=== PATIENT | male | born 1970 | race Hispanic/Latino ===

== ENCOUNTER 2019-09-18 18:50 | Emergency (ER) | payer SELFPAY ==
[2019-09-18] MEDS ORDERED: ACETAMINOPHEN 500 MG TAB ONE (19:54)
[2019-09-18] MEDS ORDERED: NA CHLORIDE 0.9% 0 ML ONE (21:24)
[2019-09-18] MEDS ORDERED: CEFTRIAXONE/SWI 1gm 2 GM/20 ML SYR ONE (21:24)
[2019-09-18] MEDS ORDERED: NA CHLORIDE 0.9% 1,000 ML ONE (21:24)
[2019-09-18] MEDS ORDERED: AZITHROMYCIN 500 MG INJ IVPB ONE ×2 (21:24→22:03)
[2019-09-18] MEDS ORDERED: NA CHLORIDE 0.9% 250 ML ONE (22:03)
[2019-09-18 22:21] LABS: Absolute Lymphocytes (CBC) 0.8 K/uL (0.7-4.9); Basophils % 0.1 % (0-1.3); Hematocrit 48.5 % (39.6-49.0); Lymphocytes % 8.2 % (15.3-44.8); MPV 10.5 fL (7.6-11.3); RBC Red Blood Cell Count 5.55 M/uL (4.33-5.43)
[2019-09-18] MEDS ORDERED: ALBUTEROL INHALER 60 PUFF/8 GM IH ONE (22:33)
[2019-09-18 22:34] LABS: ALT/SGPT 64 U/L (12-78); AST/SGOT 42 U/L (15-37); Albumin 3.1 g/dL (3.4-5.0); Alkaline Phosphatase 92 U/L (45-117); BUN Blood Urea Nitrogen 15 mg/dL (7-18); Bicarbonate 25 mmol/L (21-32); Bilirubin Total 0.5 mg/dL (0.2-1.0); Glucose Level 136 mg/dL (74-106); NT PRO-BNP 218 pg/mL (<125); Potassium 3.2 mmol/L (3.5-5.1); Protein, Total 6.8 g/dL (6.4-8.2); Sodium Level 140 mmol/L (136-145); Troponin (Emerg Dept Use Only) < 0.02 ng/mL (0.0-0.045)
--- NOTE | 2019-09-18 22:39 | RAD REPORT ---
EXAM DESCRIPTION: RAD - Chest Pa And Lat (2 Views) - 09/18/2019 8:03 pm CLINICAL HISTORY: COUGH, fever, body COMPARISON: None TECHNIQUE: Frontal and lateral views of the chest were obtained. FINDINGS: The lungs are slightly underinflated. No dense consolidation or mass. There are scattered hazy alveolar opacities evident. Trachea is midline. Heart size is normal and central vasculature is within normal limits. No pleural effusion or pneumothorax seen. No acute bony finding noted. No a ortic abnormality. IMPRESSION: Scattered patchy pneumonia changes are present in both lung awad. Correlation is neede d with any COVID-19 testing that may have been performed.
--- NOTE | 2019-09-18 22:56 | EDPHYS ---
Physician Documentation [facility] Name: Brandon Zhang Age: 49 yrs Sex: Male : 1970 Arrival Date: 09/18/2019 Time: 19:02 Bed 23 Private MD: ED Physician Torin Delgado HPI: 09/17 21:04 This 49 yrs old Male presents to ER via Ambulatory with complaints of Cold adebayo Symptoms, Fever. 21:04 The patient reports fever, that was measured at 102.2 degrees Fahrenheit. Onset: The adebayo symptoms/episode began/occurred 5 day(s) ago. Modifying factors: there are no obvious modifying factors. Associated signs and symptoms: Pertinent positives: chills, cough, runny nose, sinus congestion, shortness of breath. Severity of symptoms: At their worst the symptoms were mild in the emergency department the symptoms have improved mildly. The patient has not experienced similar symptoms in the past. Historical: - Allergies: 19:16 No Known Allergies; ss - PMHx: 19:16 Hypertension; ss - PSHx: 19:16 None; ss - Immunization history:: Flu vaccine is not up to date. - Social history:: Smoking status: Patient denies any tobacco usage or history of. Patient uses alcohol, only on a social basis. Patient/guardian denies using street drugs. - Family history:: not pertinent. ROS: 21:04 Eyes: Negative for injury, pain, redness, and discharge, ENT: Negative for injury, adebayo pain, and discharge, Neck: Negative for injury, pain, and swelling, Cardiovascular: Negative for chest pain, palpitations, and edema, Abdomen/GI: Negative for abdominal pain, nausea, vomiting, diarrhea, and constipation, Back: Negative for injury and pain, : Negative for injury, bleeding, discharge, and swelling, MS/Extremity: Negative for injury and deformity, Skin: Negative for injury, rash, and discoloration, Neuro: Negative for headache, weakness, numbness, tingling, and seizure, Psych: Negative for depression, anxiety, suicide ideation, homicidal ideation, and hallucinations, Allergy/Immunology: Negative for hives, rash, and allergies, Endocrine: Negative for neck swelling, polydipsia, polyuria, polyphagia, and marked weight changes, Hematologic/Lymphatic: Negative for swollen nodes, abnormal bleeding, and unusual bruising. 21:04 Constitutional: Positive for body aches, chills, fatigue, fever, malaise. 21:04 Respiratory: Positive for cough, with no reported sputum. 21:04 MS/extremity: Negative for decreased range of motion, pain, swelling, tenderness. Exam: 21:04 Head/Face: Normocephalic, atraumatic. Eyes: Pupils equal round and reactive to light, adebayo extra-ocular motions intact. Lids and lashes normal. Conjunctiva and sclera are non-icteric and not injected. Cornea within normal limits. Periorbital areas with no swelling, redness, or edema. ENT: Nares patent. No nasal discharge, no septal abnormalities noted. Tympanic membranes are normal and external auditory canals are clear. Oropharynx with no redness, swelling, or masses, exudates, or evidence of obstruction, uvula midline. Mucous membranes moist. Neck: Trachea midline, no thyromegaly or masses palpated, and no cervical lymphadenopathy. Supple, full range of motion without nuchal rigidity, or vertebral point tenderness. No Meningismus. Chest/axilla: Normal chest wall appearance and motion. Nontender with no deformity. No lesions are appreciated. Cardiovascular: Regular rate and rhythm with a normal S1 and S2. No gallops, murmurs, or rubs. Normal PMI, no JVD. No pulse deficits. Respiratory: Lungs have equal breath sounds bilaterally, clear to auscultation and percussion. No rales, rhonchi or wheezes noted. No increased work of breathing, no retractions or nasal flaring. Abdomen/GI: Soft, non-tender, with normal bowel sounds. No distension or tympany. No guarding or rebound. No evidence of tenderness throughout. Back: No spinal tenderness. No costovertebral tenderness. Full range of motion. Skin: Warm, dry with normal turgor. Normal color with no rashes, no lesions, and no evidence of cellulitis. MS/ Extremity: Pulses equal, no cyanosis. Neurovascular intact. Full, normal range of motion. Neuro: Awake and alert, GCS 15, oriented to person, place, time, and situation. Cranial nerves II-XII grossly intact. Motor strength 5/5 in all extremities. Sensory grossly intact. Cerebellar exam normal. Normal gait. Psych: Awake, alert, with orientation to person, place and time. Behavior, mood, and affect are within normal limits. 21:04 Constitutional: The patient appears febrile. 21:04 Cardiovascular: Rate: tachycardic, Rhythm: regular, Pulses: Pulses are 4+ in left popliteal artery, bilateral radial, brachial, femoral, popliteal, posterior tibial and and dorsalis pedis arteries.. Heart sounds: normal, Edema: is not appreciated. 21:04 Respiratory: the patient does not display signs of respiratory distress, Respirations: normal, Breath sounds: are clear throughout, Respiratory rate: 18 22:53 ECG was reviewed by the Attending Physician. [facility] Vital Signs: 19:13 BP 146 / 101; Pulse 100; Resp 18; Temp 102.2; Pulse Ox 96% ; ss 21:30 BP 133 / 101; Pulse 72; Resp 16; Pulse Ox 97% on R/A; jb4 21:40 Temp 99.6(O); jb4 22:15 BP 137 / 96; Pulse 78; Resp 16; Temp 99.6(O); Pulse Ox 96% on R/A; jb4 23:15 BP 121 / 93; Pulse 62; Resp 16; Pulse Ox 96% on R/A; jb4 MDM: 19:19 Patient medically screened. [facility] 21:08 Data reviewed: vital signs, nurses notes, lab test result(s), radiologic studies. [facility] 22:52 Differential diagnosis: viral Infection, bacterial infection, URI, bronchitis, adebayo pneumonia UTI. Data interpreted: classroom monitor: rate is 100 beats/min, Pulse oximetry: on room air is 96 %. Test interpretation: by ED physician or midlevel provider: ECG, plain radiologic studies. Counseling: I had a detailed discussion with the patient and/or guardian regarding: the historical points, exam findings, and any diagnostic results supporting the discharge/admit diagnosis, lab results, radiology results, the need for outpatient follow up. 22:55 ED course: improved, covid suspected. [facility] 09/17 19:33 Order name: Strep; Complete Time: 21:34 [facility] 09/17 19:33 Order name: COVID-19 [facility] 09/17 19:33 Order name: Influenza Screen (a \T\ B); Complete Time: 21:34 [facility] 09/17 20:32 Order name: Throat Culture [facility] 09/17 20:56 Order name: CBC with Diff [facility] 09/17 20:56 Order name: Comprehensive Metabolic Panel; Complete Time: 22:54 [facility] 09/17 19:33 Order name: Chest Pa And Lat (2 Views) XRAY; Complete Time: 22:54 [facility] 09/17 20:56 Order name: Blood Culture Adult (2) [facility] 09/17 20:56 Order name: Troponin (emerg Dept Use Only); Complete Time: 22:54 [facility] 09/17 20:57 Order name: BNP; Complete Time: 22:54 [facility] 09/17 22:28 Order name: Manual Differential ED[facility] 09/17 21:08 Order name: EKG; Complete Time: 21:09 [facility] 09/17 21:08 Order name: EKG - Nurse/Tech; Complete Time: 22:47 [facility] 09/17 21:51 Order name: PO challenge; Complete Time: 22:19 [facility] 09/17 22:54 Order name: PO challenge: juice; Complete Time: 23:06 [facility] EC:53 Rate is 72 beats/min. Rhythm is regular. QRS [facility] is Normal. ME interval is normal. QRS adebayo interval is normal. QT interval is normal. No Q waves. T waves are Normal. No ST changes noted. Clinical impression: Normal ECG and No evidence of ischemia. Interpreted by me. Reviewed by me. Administered Medications: 19:50 Drug: Tylenol 1000 mg Route: PO; jb4 21:40 Follow up: Temp 99.6 Oral; Response: No adverse reaction; Temperature is decreased jb4 21:40 Drug: NS 0.9% 1000 ml Route: IV; Rate: 1 bolus; Site: right antecubital; jb4 22:40 Follow up: Response: No adverse reaction; IV Status: Completed infusion jb4 21:55 Drug: Rocephin 2 grams Route: IV; Rate: per protocol; Site: right antecubital; jb4 21:59 Follow up: Response: No adverse reaction; IV Status: Completed infusion jb4 21:59 Drug: Zithromax 500 mg Route: IVPB; Infused Over: 1 hrs; Site: right antecubital; jb4 22:59 Follow up: Response: No adverse reaction; IV Status: Completed infusion jb4 22:35 Drug: Albuterol HFA Inhaler 2 puffs Route: Inhalation; jb4 Disposition: 09/18/19 22:55 Discharged to Home. Impression: Dyspnea, Pneumonia due to other specified bacteria - BILATERAL PNEUMONIA, PATCHY. - Condition is Stable. - Discharge Instructions: Fever, Adult, Community-Acquired Pneumonia, Adult, Shortness of Breath, Viral Respiratory Infection, Shortness of Breath, Ofzf-[id number], Community-Acquired Pneumonia, Adult, Zgxq-jm-Ufhn, Viral Respiratory Infection, Gimr-Gf-Rmmq, Fever, Adult, Jwat-dn-Yiir, COVID-19. - Prescriptions for Albuterol Sulfate 90 mcg/actuation - inhale 1-2 puff by INHALATION route every 4-6 hours; 1 Inhaler. Zithromax 500 mg Oral Tablet - take 1 tablet by ORAL route once daily for 5 days; 5 tablet. - Medication Reconciliation Form, Thank You Letter, Antibiotic Education, Prescription Opioid Use form. - Follow up: Private Physician; When: 2 - 3 days; Reason: Recheck today's complaints, Continuance of care, Re-evaluation by your physician. Follow up: Jose Villatoro MD; When: 2 - 3 days; Reason: Recheck today's complaints, Re-evaluation by your physician. - Problem is new. - Symptoms have improved. Signatures: Dispatcher [employer] EDMS Torin Delgado MD MD cha Smirch, Shelby, RN RN Coy Arana RN RN jb4 Corrections: (The following items were deleted from the chart) 22:56 22:55 09/18/2019 22:55 Discharged to Home. Impression: Dyspnea; Pneumonia due to other adebayo specified bacteria - BILATERAL PNEUMONIA, PATCHY. Condition is Stable. Discharge Instructions: Fever, Adult, Community-Acquired Pneumonia, Adult, Shortness of Breath, Viral Respiratory Infection, Shortness of Breath, Klbh-ht-Laeh, Community-Acquired Pneumonia, Adult, Lcae-ue-Sjex, Viral Respiratory Infection, Eczy-Lb-Ltrw, Fever, Adult, Trbj-fg-Bchg. Prescriptions for Albuterol Sulfate 90 mcg/actuation - inhale 1-2 puff by INHALATION route every 4-6 hours; 1 Inhaler, Zithromax 500 mg Oral Tablet - take 1 tablet by ORAL route once daily for 5 days; 5 tablet. and Forms are Medication Reconciliation Form, Thank You Letter, Antibiotic Education, Prescription Opioid Use. Follow up: Private Physician; When: 2 - 3 days; Reason: Recheck today's complaints, Continuance of care, Re-evaluation by your physician. Problem is new. Symptoms have improved. [facility] 23:31 22:56 09/18/2019 22:55 Discharged to Home. Impression: Dyspnea; Pneumonia due to other jb4 specified bacteria - BILATERAL PNEUMONIA, PATCHY. Condition is Stable. Discharge Instructions: Fever, Adult, Community-Acquired Pneumonia, Adult, Shortness of Breath, Viral Respiratory Infection, Shortness of Breath, Uyok-di-Sexh, Community-Acquired Pneumonia, Adult, Bxtg-md-Blxw, Viral Respiratory Infection, Sppd-Nb-Doii, Fever, Adult, Cmsl-wc-Gkfw. Prescriptions for Albuterol Sulfate 90 mcg/actuation - inhale 1-2 puff by INHALATION route every 4-6 hours; 1 Inhaler, Zithromax 500 mg Oral Tablet - take 1 tablet by ORAL route once daily for 5 days; 5 tablet. and Forms are Medication Reconciliation Form, Thank You Letter, Antibiotic Education, Prescription Opioid Use. Follow up: Private Physician; When: 2 - 3 days; Reason: Recheck today's complaints, Continuance of care, Re-evaluation by your physician. Follow up: Jose Vilaltoro; When: 2 - 3 days; Reason: Recheck today's complaints, Re-evaluation by your physician. Problem is new. Symptoms have improved. [facility]
--- NOTE | 2019-09-18 22:56 | ER ---
Nurse's Notes [facility] Name: Brandon Zhang Age: 49 yrs Sex: Male : 1970 Arrival Date: 09/18/2019 Time: 19:02 Bed 23 Private MD: Diagnosis: Dyspnea;Pneumonia due to other specified bacteria-BILATERAL PNEUMONIA, PATCHY Presentation: 09/17 19:13 Chief complaint: Patient states: Fever, cough, body aches, and fever for 5 days. Has ss seen PCP, prednisone isn't helping. Coronavirus screen: Surgical mask placed on patient. Patient moved to private room, placed in contact and droplet isolation with eye protection until further assessment. Patient reports a cough. Patient reports shortness of breath or difficulty breathing. Patient reports a measured and/or subjective temperature greater than 100.4F. Patient denies travel on a cruise ship or to a country the [facility] currently lists as an affected area. Patient denies contact with known and/or suspected case of COVID-19. Ebola Screen: Patient denies travel to an Ebola-affected area in the 21 days before illness onset. Initial Sepsis Screen: Does the patient meet any 2 criteria? Temp <36.0*C (96.8*F)) or > 38.3*C (100.9*F). HR > 90 bpm. Yes Does the patient have a suspected source of infection? Yes: Productive cough/pneumonia. Risk Assessment: Do you want to hurt yourself or someone else? Patient reports no desire to harm self or others. Onset of symptoms was September 13, 2019. 19:13 Method Of Arrival: Ambulatory ss 19:13 Acuity: MAYURI 3 ss Historical: - Allergies: 19:16 No Known Allergies; ss - PMHx: 19:16 Hypertension; ss - PSHx: 19:16 None; ss - Immunization history:: Flu vaccine is not up to date. - Social history:: Smoking status: Patient denies any tobacco usage or history of. Patient uses alcohol, only on a social basis. Patient/guardian denies using street drugs. - Family history:: not pertinent. Screenin:30 Abuse screen: Denies threats or abuse. Nutritional screening: No deficits noted. jb4 Tuberculosis screening: No symptoms or risk factors identified. Fall Risk None identified. Assessment: 19:30 General: Appears in no apparent distress. comfortable, Behavior is calm, cooperative, jb4 appropriate for age. Pain: Complains of pain in generalized body aches, heeadache. Pain does not radiate. Pain currently is 4 out of 10 on a pain scale. Quality of pain is described as aching. Neuro: Level of Consciousness is awake, alert, obeys commands, Oriented to person, place, time, situation. Cardiovascular: Patient's skin is warm and dry. Respiratory: Airway is patent Respiratory effort is even, unlabored, Respiratory pattern is regular, symmetrical, Breath sounds are clear bilaterally. GI: No signs and/or symptoms were reported involving the gastrointestinal system. : No signs and/or symptoms were reported regarding the genitourinary system. EENT: No signs and/or symptoms were reported regarding the EENT system. Derm: Skin is intact, Skin is pink, warm \T\ dry. Musculoskeletal: Circulation, motion, and sensation intact. Range of motion:. 20:30 Reassessment: Patient appears in no apparent distress at this time. Patient and/or jb4 family updated on plan of care and expected duration. Pain level reassessed. Patient is alert, oriented x 3, equal unlabored respirations, skin warm/dry/pink. 21:30 Reassessment: Patient appears in no apparent distress at this time. Patient and/or jb4 family updated on plan of care and expected duration. Pain level reassessed. Patient is alert, oriented x 3, equal unlabored respirations, skin warm/dry/pink. 22:30 Reassessment: Patient appears in no apparent distress at this time. Patient and/or jb4 family updated on plan of care and expected duration. Pain level reassessed. Patient is alert, oriented x 3, equal unlabored respirations, skin warm/dry/pink. 23:30 Reassessment: Patient appears in no apparent distress at this time. Patient and/or jb4 family updated on plan of care and expected duration. Pain level reassessed. Patient is alert, oriented x 3, equal unlabored respirations, skin warm/dry/pink. Vital Signs: 19:13 BP 146 / 101; Pulse 100; Resp 18; Temp 102.2; Pulse Ox 96% ; ss 21:30 BP 133 / 101; Pulse 72; Resp 16; Pulse Ox 97% on R/A; jb4 21:40 Temp 99.6(O); jb4 22:15 BP 137 / 96; Pulse 78; Resp 16; Temp 99.6(O); Pulse Ox 96% on R/A; jb4 23:15 BP 121 / 93; Pulse 62; Resp 16; Pulse Ox 96% on R/A; jb4 ED Course: 19:02 Patient arrived in ED. fj1 19:15 Triage completed. ss 19:16 Arm band placed on Patient placed in an exam room, on a stretcher. ss 19:19 Torin Delgado MD is Attending Physician. adebayo 19:30 Patient has correct armband on for positive identification. Bed in low position. Call jb4 light in reach. Side rails up X 1. Pulse ox on. NIBP on. 20:03 Chest Pa And Lat (2 Views) XRAY In Process Unspecified. EDMS 20:19 Coy Arana, RN is Primary Nurse. jb4 20:19 Influenza Screen (a \T\ B) Sent. jb4 20:19 COVID-19 Sent. jb4 20:19 Strep Sent. jb4 22:56 Jose Villatoro MD is Referral Physician. [facility] 23:30 No provider procedures requiring assistance completed. IV discontinued, intact, jb4 bleeding controlled, No redness/swelling at site. Pressure dressing applied. 09/18 11:49 Health Dept notified/ PUI# [id number]/ Jennifer in lab notified. eb Administered Medications: 09/17 19:50 Drug: Tylenol 1000 mg Route: PO; jb4 21:40 Follow up: Temp 99.6 Oral; Response: No adverse reaction; Temperature is decreased jb4 21:40 Drug: NS 0.9% 1000 ml Route: IV; Rate: 1 bolus; Site: right antecubital; jb4 22:40 Follow up: Response: No adverse reaction; IV Status: Completed infusion jb4 21:55 Drug: Rocephin 2 grams Route: IV; Rate: per protocol; Site: right antecubital; jb4 21:59 Follow up: Response: No adverse reaction; IV Status: Completed infusion jb4 21:59 Drug: Zithromax 500 mg Route: IVPB; Infused Over: 1 hrs; Site: right antecubital; jb4 22:59 Follow up: Response: No adverse reaction; IV Status: Completed infusion jb4 22:35 Drug: Albuterol HFA Inhaler 2 puffs Route: Inhalation; jb4 Outcome: 22:55 Discharge ordered by . adebayo 23:30 Discharged to home ambulatory, with family. jb4 23:30 Condition: stable 23:30 Discharge instructions given to patient, family, Instructed on discharge instructions, follow up and referral plans. medication usage, Demonstrated understanding of instructions, follow-up care, medications, Prescriptions given X 2. 23:31 Patient left the ED. jb4 Addendum: 09/20/2019 19:10 Addendum: Other Danny Singletary attempted to call pt to notify him of positive COVID i w result, pt did not answer, left a message. 09/21/2019 08:30 Addendum: Other Dr. Barrett attempted to call pt to notify him of positive COVID result, i w pt did not answer, left voicemail. 14:21 Addendum: Other pt returned to ER for worsening symptoms, was notified of COVID results i w by Wilmar Enriquez NP. Signatures: Dispatcher [employer] EDMS Torin Delgado MD MD cha Williams, Irene, TIGRE RN iw Karina Sol RN RN ss Bryson, James, TIGRE RN jb4 Lorena Benito Frank fj1 Corrections: (The following items were deleted from the chart) 09/18 03:33 00:30 Reassessment: Patient appears in no apparent distress at this time. Patient jb4 and/or family updated on plan of care and expected duration. Pain level reassessed. Patient is alert, oriented x 3, equal unlabored respirations, skin warm/dry/pink. Pt admitted to ER hold. jb4 09/20 14:22 14:21 Addendum: Other pt returned to ER for worsening symptoms, was notified of COVID iw results iw
[2019-09-18 23:50] VITALS: TEMP 99.6
[2019-09-18 23:51] VITALS: O2SAT 96
[2019-09-18 23:52] VITALS: BP 121/93
[2019-09-19 00:43] LABS: Blood Morphology Comment NOT SEEN (NOT SEEN); Platelet Estimate ADEQ
--- NOTE | 2019-09-19 06:31 | EKG ---
Test Date: 2019-09-18 Test Time: 22:37:56 Database Administration Project Manager: AV MEASUREMENT RESULTS: Intervals: Rate: 72 WI: 142 QRSD: 98 QT: 382 QTc: 418 Dale: P: 59 WI: 142 QRS: 72 T: 12 INTERPRETIVE STATEMENTS: Normal sinus rhythm Normal ECG No previous ECG available for comparison Electronically Signed On 09-19-19 06:30:14 CDT by Raymond Clark
== END 2019-09-18 23:31 | disposition home or self-care (01) ==
LOC: ER 18:50
DX: U07.1 COVID-19 (principal); J15.8 Pneumonia due to other specified bacteria; R06.00 Dyspnea, unspecified
CPT/HCPCS: 36415; 71046; 80053; 83880; 84484; 85025; 87040; 87070; 87081; 87804; 93005; 96365; 96375; 99284; J0456; J0696; J7030; J7040; U0001

== ENCOUNTER 2019-09-21 12:21 | Inpatient (IN) | payer OTHER, SELFPAY ==
[2019-09-21] MEDS ORDERED: NA CHLORIDE 0.9% 2,000 ML ONE (13:17)
[2019-09-21 13:35] LABS: Protime INR 1.07
[2019-09-21 13:51] LABS: ALT/SGPT 81 U/L (12-78); AST/SGOT 63 U/L (15-37); Albumin 2.7 g/dL (3.4-5.0); Alkaline Phosphatase 99 U/L (45-117); Amylase 88 U/L (25-115); BUN Blood Urea Nitrogen 11 mg/dL (7-18); Bicarbonate 23 mmol/L (21-32); Bilirubin Direct 0.2 mg/dL (0-0.2); Bilirubin Total 0.8 mg/dL (0.2-1.0); CKMB Creatine Kinase MB 1.6 ng/mL (0.3-3.6); Creatine Phosphokinase 166 U/L (39-308); Glucose Level 158 mg/dL (74-106); Lipase 418 U/L (73-393); Potassium 3.3 mmol/L (3.5-5.1); Sodium Level 125 mmol/L (136-145); Troponin (Emerg Dept Use Only) < 0.02 ng/mL (0.0-0.045)
[2019-09-21] MEDS ORDERED: CEFTRIAXONE/SWI 1gm 1 GM/10 ML SYR ONE (13:51)
[2019-09-21 14:00] LABS: Absolute Lymphocytes (CBC) 0.7 K/uL (0.7-4.9); Basophils % 0.1 % (0-1.3); Hematocrit 49.8 % (39.6-49.0); Lymphocytes % 6.8 % (15.3-44.8); MPV 10.7 fL (7.6-11.3); RBC Red Blood Cell Count 5.91 M/uL (4.33-5.43)
--- NOTE | 2019-09-21 14:28 | ER ---
Nurse's Notes [facility] Name: Brandon Zhang Age: 49 yrs Sex: Male : 1970 Arrival Date: 09/21/2019 Time: 12:23 Bed 20 Private MD: Diagnosis: Other coronavirus as the cause of diseases classified elsewhere-bilateral pneumonia Presentation: 09/20 12:24 Chief complaint: Patient states: Last week Ahmet, I have been having trouble ca1 breathing. In the past few days, I haven't slept cause I can't breathe. Cough started x 1 week ago. Fever yesterday. Denies Asthma. Denies COPD. I was here on September 17 for Bilateral Pneumonia. Coronavirus screen: Surgical mask placed on patient. Patient moved to private room, placed in contact and droplet isolation with eye protection until further assessment. Patient reports a cough. Patient reports shortness of breath or difficulty breathing. Patient reports a measured and/or subjective temperature greater than 100.4F. Patient denies travel on a cruise ship or to a country the [facility] currently lists as an affected area. Patient denies contact with known and/or suspected case of COVID-19. Ebola Screen: Patient negative for fever greater than or equal to 101.5 degrees Fahrenheit, and additional compatible Ebola Virus Disease symptoms Patient denies exposure to infectious person. Patient denies travel to an Ebola-affected area in the 21 days before illness onset. No symptoms or risks identified at this time. Initial Sepsis Screen: Does the patient meet any 2 criteria? RR > 20 per min. HR > 90 bpm. No. Patient's initial sepsis screen is negative. Does the patient have a suspected source of infection? Yes: Productive cough/pneumonia. Risk Assessment: Do you want to hurt yourself or someone else? Patient reports no desire to harm self or others. Onset of symptoms was September 21, 2019. 12:24 Method Of Arrival: Ambulatory ca1 12:24 Acuity: MAYURI 2 ca1 Triage Assessment: 12:30 General: Appears in no apparent distress. uncomfortable, ill, Behavior is cooperative, bp appropriate for age, anxious, CODE SEPSIS CALLED. Pain: Denies pain. EENT: No deficits noted. Neuro: No deficits noted. Cardiovascular: Rhythm is sinus tachycardia. Respiratory: Reports shortness of breath Onset: The symptoms/episode began/occurred yesterday, the patient has mild shortness of breath. GI: No signs and/or symptoms were reported involving the gastrointestinal system. : No signs and/or symptoms were reported regarding the genitourinary system. Derm: No deficits noted. Musculoskeletal: No deficits noted. Historical: - Allergies: 12:28 No Known Allergies; ca1 - Home Meds: 12:28 Lisinopril Oral [Active]; azithromycin Oral [Active]; ca1 - PMHx: 12:28 Hypertension; ca1 - PSHx: 12:28 None; ca1 - Immunization history:: Adult Immunizations up to date. - Social history:: Smoking status: Patient denies any tobacco usage or history of. Screenin:41 Abuse screen: Denies threats or abuse. Denies injuries from another. Nutritional bp screening: No deficits noted. Tuberculosis screening: No symptoms or risk factors identified. Fall Risk None identified. Assessment: 12:30 General: SEE TRIAGE NOTE. Cardiovascular: Rhythm is sinus tachycardia. Respiratory: bp Airway is patent Respiratory effort is even, unlabored, Breath sounds are clear bilaterally. Vital Signs: 12:24 BP 135 / 95; Pulse 105; Resp 24 S; Temp 97.8(TE); Pulse Ox 94% on R/A; Weight 77.11 kg ca1 (R); Height 5 ft. 6 in. (167.64 cm) (R); 13:23 BP 120 / 87; Pulse 96; Resp 28; Temp 98.4; Pulse Ox 94% ; bp 15:00 BP 143 / 95; Pulse 91; Resp 24; Pulse Ox 98% ; bp 16:30 BP 127 / 85; Pulse 86; Resp 34; Pulse Ox 98% on 3 lpm NC; bp 12:24 Body Mass Index 27.44 (77.11 kg, 167.64 cm) ca1 ED Course: 12:23 Patient arrived in ED. ag5 12:27 Triage completed. ca1 12:31 Mina Urban NP is PHCP. pm1 12:31 Santos Barrett MD is Attending Physician. pm1 12:34 Delfin Navarrete, TIGRE is Primary Nurse. bp 12:41 Patient has correct armband on for positive identification. Bed in low position. Call bp light in reach. Side rails up X2. 12:56 Inserted saline lock: 20 gauge in right forearm, using aseptic technique. dh4 13:31 Chest Single View XRAY In Process Unspecified. EDMS 14:27 Prince Castro MD is Hospitalizing Provider. pm1 16:00 Urine Dipstick--Ancillary (enter results) Sent. ls4 16:43 Arm band placed on. bp 16:43 No provider procedures requiring assistance completed. Patient admitted, IV remains in bp place. Administered Medications: 13:15 Drug: NS 0.9% (30 ml/kg) 30 ml/kg Route: IV; Rate: bolus; Site: right forearm; bp 15:28 Follow up: IV Status: Completed infusion; IV Intake: 2300ml bp 13:45 Drug: Rocephin 1 grams Route: IV; Rate: calculated rate; Site: right forearm; bp 15:27 Follow up: IV Status: Completed infusion; IV Intake: 20ml bp 14:00 Drug: Albuterol HFA Inhaler 2 puffs Route: Inhalation; bp Intake: 15:27 IV: 20ml; Total: 20ml. bp 15:28 IV: 2300ml; Total: 2320ml. bp Outcome: 14:27 Decision to Hospitalize by Provider. pm1 16:43 Condition: stable bp 16:43 Instructed on the need for admit. 16:53 Admitted to Med/surg accompanied by tech, via wheelchair, room 417, with chart, Report bp called to ALONDRA 17:37 Patient left the ED. bp Signatures: Dispatcher [employer] EDMS Mina Urban, SHANAE URBAN REDEVELOPMENT SPECIALIST pm1 Delfin Navarrete RN RN bp Samara Galicia RN RN 4 Rosa Weiss RN RN [facility] Maddy Gtz [facility] Edmundo Gil 4 Corrections: (The following items were deleted from the chart) 12:28 12:24 Initial Sepsis Screen: Does the patient meet any 2 criteria? No. Patient's ca1 initial sepsis screen is negative. Does the patient have a suspected source of infection? No. Patient's initial sepsis screen is negative. ca1 12:28 12:24 BP 135 / 95; Pulse 52bpm; Resp 24bpm; Spontaneous; Pulse Ox 94% RA; Temp 97.8F ca1 Temporal; 77.11 kg Reported; Height 5 ft. 6 in. Reported; BMI: 27.4; ca1 13:51 13:23 Pulse 96bpm; Resp 28bpm; Pulse Ox 94%; dh4 bp
--- NOTE | 2019-09-21 14:28 | EDPHYS ---
Physician Documentation [facility] Name: Brandon Zhang Age: 49 yrs Sex: Male : 1970 Arrival Date: 09/21/2019 Time: 12:23 Bed 20 Private MD: ED Physician Santos Barrett HPI: 09/20 12:35 This 49 yrs old Male presents to ER via Ambulatory with complaints of pm1 Breathing Difficulty. 12:35 The patient has shortness of breath at rest. Onset: The symptoms/episode began/occurred pm1 1 week(s) ago. Duration: The symptoms are continuous, and are steadily getting worse. The patient's shortness of breath is aggravated by nothing, is alleviated by inhaler. 12:35 Associated signs and symptoms: Pertinent positives: non-productive cough, fever, pm1 chills, bodyaches, Pertinent negatives: chest pain, nausea, vomiting. Severity of symptoms: in the emergency department the symptoms are worse. The patient has been recently seen at the [facility] Emergency Department, for similar complaints labs were performed, X-rays were performed, was given a prescription for antibiotics, given albuterol inhaler. Patient was given steroids by his PCP for the same complaint on 09/12. 12:35 Patient pending covid results. pm1 Historical: - Allergies: 12:28 No Known Allergies; ca1 - Home Meds: 12:28 Lisinopril Oral [Active]; azithromycin Oral [Active]; ca1 - PMHx: 12:28 Hypertension; ca1 - PSHx: 12:28 None; ca1 - Immunization history:: Adult Immunizations up to date. - Social history:: Smoking status: Patient denies any tobacco usage or history of. ROS: 12:36 Eyes: Negative for injury, pain, redness, and discharge, ENT: Negative for injury, pm1 pain, and discharge, Neck: Negative for injury, pain, and swelling. 12:36 Cardiovascular: Negative for chest pain, palpitations, and edema. 12:36 Abdomen/GI: Negative for abdominal pain, nausea, vomiting, diarrhea, and constipation, Back: Negative for injury and pain, MS/Extremity: Negative for injury and deformity, Skin: Negative for injury, rash, and discoloration, Neuro: Negative for headache, weakness, numbness, tingling, and seizure. 12:36 Constitutional: Positive for body aches, chills, fever, Negative for poor PO intake. 12:36 Respiratory: Positive for cough, shortness of breath. Exam: 12:36 Head/Face: Normocephalic, atraumatic. Chest/axilla: Normal chest wall appearance and pm1 motion. Nontender with no deformity. No lesions are appreciated. 12:36 Back: No spinal tenderness. No costovertebral tenderness. Full range of motion. 12:36 Skin: Warm, dry with normal turgor. Normal color with no rashes, no lesions, and no evidence of cellulitis. MS/ Extremity: Pulses equal, no cyanosis. Neurovascular intact. Full, normal range of motion. 12:36 Constitutional: The patient appears alert, awake, comfortable, non-diaphoretic, non-toxic, well developed, well hydrated, well groomed, well nourished, tachypnea but able to talk full sentences 12:36 Cardiovascular: Rate: normal, Rhythm: regular, Pulses: no pulse deficits are appreciated, Edema: is not appreciated. 12:36 Respiratory: mild respiratory distress is noted, Respirations: tachypnea, 28 O2 saturation on room air 94%. 12:36 Abdomen/GI: Exam negative for acute changes, Inspection: abdomen appears normal, Palpation: abdomen is soft and non-tender, in all quadrants. 12:36 Neuro: Orientation: is normal, Mentation: is normal, Motor: is normal, moves all fours, Sensation: is normal, no obvious gross deficits. Vital Signs: 12:24 BP 135 / 95; Pulse 105; Resp 24 S; Temp 97.8(TE); Pulse Ox 94% on R/A; Weight 77.11 kg ca1 (R); Height 5 ft. 6 in. (167.64 cm) (R); 13:23 BP 120 / 87; Pulse 96; Resp 28; Temp 98.4; Pulse Ox 94% ; bp 15:00 BP 143 / 95; Pulse 91; Resp 24; Pulse Ox 98% ; bp 16:30 BP 127 / 85; Pulse 86; Resp 34; Pulse Ox 98% on 3 lpm NC; bp 12:24 Body Mass Index 27.44 (77.11 kg, 167.64 cm) ca1 MDM: 12:31 Patient medically screened. pm1 13:30 Counseling: I had a detailed discussion with the patient and/or guardian regarding: lab pm1 results, positive for covid-19. 14:23 Data reviewed: vital signs. Data interpreted: Pulse oximetry: on room air is 94 %. pm1 15:26 Physician consultation: Jeanne Paula MD was called at 15:20, was contacted at 15:20, pm1 regarding admission, patient's condition, and will see patient in ED, shortly. 09/20 12:32 Order name: Amylase, Serum; Complete Time: 13:54 pm1 09/20 12:32 Order name: Basic Metabolic Panel; Complete Time: 13:54 pm1 09/20 12:32 Order name: Blood Culture Adult (2) pm1 09/20 12:32 Order name: CBC with Diff; Complete Time: 14:16 pm1 09/20 12:32 Order name: Ckmb; Complete Time: 13:54 pm1 09/20 12:32 Order name: CPK; Complete Time: 13:54 pm1 09/20 12:32 Order name: Lactate; Complete Time: 16:22 pm1 09/20 12:32 Order name: LFT's; Complete Time: 13:54 pm1 09/20 12:32 Order name: Lipase; Complete Time: 13:54 pm1 09/20 12:32 Order name: Procalcitonin; Complete Time: 14:28 pm1 09/20 12:32 Order name: Protime (+inr); Complete Time: 14:16 pm1 09/20 12:32 Order name: Ptt, Activated; Complete Time: 14:16 pm1 09/20 12:32 Order name: Troponin (emerg Dept Use Only); Complete Time: 13:54 pm1 09/20 12:32 Order name: Urine Microscopic Only; Complete Time: 16:22 pm1 09/20 12:32 Order name: Chest Single View XRAY; Complete Time: 14:47 pm1 09/20 12:32 Order name: Accucheck; Complete Time: 13:02 pm1 09/20 14:18 Order name: Urine Dipstick--Ancillary (enter results) eb 09/20 14:19 Order name: Urine Dipstick-Ancillary; Complete Time: 16:22 EDMS 09/20 15:48 Order name: CONS Pharmacy Consult EDME 09/20 15:48 Order name: Regular EDME 09/20 15:48 Order name: CBC with Automated Diff EDME 09/20 15:48 Order name: Comprehensive Metabolic Panel EDME 09/20 15:50 Order name: CONS Physician Consult EDME 09/20 15:50 Order name: Osmolality, Serum EDME 09/20 15:50 Order name: Thyroid Stimulating Hormone; Complete Time: 16:41 EDME 09/20 15:50 Order name: UR CREAT EDME 09/20 15:50 Order name: UR SODIUM EDME 09/20 12:32 Order name: Cardiac monitoring; Complete Time: 13:02 pm1 09/20 12:32 Order name: EKG - Nurse/Tech; Complete Time: 13:02 pm1 09/20 12:32 Order name: IV Saline Lock - Large Bore; Complete Time: 13:02 pm09/20 12:32 Order name: Labs collected and sent; Complete Time: 13:02 pm1 09/20 12:32 Order name: O2 Per Protocol; Complete Time: 12:38 pm1 09/20 12:32 Order name: O2 Sat Monitoring; Complete Time: 12:38 pm1 09/20 12:32 Order name: Urine Dipstick-Ancillary (obtain specimen); Complete Time: 13:34 pm1 09/20 13:28 Order name: Labs - recollect needed: lactic recollect; Complete Time: 13:49 eb 09/20 13:30 Order name: Labs - recollect needed: lactate sepsis due now ; Complete Time: 13:49 iw Administered Medications: 13:15 Drug: NS 0.9% (30 ml/kg) 30 ml/kg Route: IV; Rate: bolus; Site: right forearm; bp 15:28 Follow up: IV Status: Completed infusion; IV Intake: 2300ml bp 13:45 Drug: Rocephin 1 grams Route: IV; Rate: calculated rate; Site: right forearm; bp 15:27 Follow up: IV Status: Completed infusion; IV Intake: 20ml bp 14:00 Drug: Albuterol HFA Inhaler 2 puffs Route: Inhalation; bp Disposition: 18:30 Co-signature as Attending Physician, Santos Barrett MD. rn Disposition: 09/21/19 14:27 Hospitalization ordered by Prince Gloria for Observation. Preliminary diagnosis is Other coronavirus as the cause of diseases classified elsewhere - bilateral pneumonia. - Bed requested for Telemetry/MedSurg (observation). - Status is Observation. bp - Condition is Stable. - Problem is new. - Symptoms have improved. Signatures: Dispatcher [employer] Zeynep Kolb, RN RN Santos Palmer MD MD rn Marinas, Patrick, ABORIGINAL CEREMONIAL CELEBRANT ABORIGINAL CEREMONIAL CELEBRANT pm1 Jose Ribeiro, RN RN ja1 Delfin Navarrete, RN RN bp Lorena Benito eb Rosa Weiss RN RN ca1 Corrections: (The following items were deleted from the chart) 16:18 14:27 Hospitalization Ordered by Prince Gloria MCKEON for Observation. Preliminary eb diagnosis is Other coronavirus as the cause of diseases classified elsewhere - bilateral pneumonia. Bed requested for Telemetry/MedSurg (observation). Status is Observation. Condition is Stable. Problem is new. Symptoms have improved. pm1 16:38 16:18 09/21/2019 14:27 Hospitalization Ordered by Prince Gloria MCKEON for Observation. ja1 Preliminary diagnosis is Other coronavirus as the cause of diseases classified elsewhere - bilateral pneumonia. Bed requested for Telemetry/MedSurg (observation). Status is Observation. Condition is Stable. Problem is new. Symptoms have improved. eb 17:37 16:38 09/21/2019 14:27 Hospitalization Ordered by Prince Gloria MCKEON for Observation. bp Preliminary diagnosis is Other coronavirus as the cause of diseases classified elsewhere - bilateral pneumonia. Bed requested for Telemetry/MedSurg (observation). Status is Observation. Condition is Stable. Problem is new. Symptoms have improved. ja1
--- NOTE | 2019-09-21 14:38 | RAD REPORT ---
EXAM DESCRIPTION: RAD - Chest Single View - 09/21/2019 1:31 pm CLINICAL HISTORY: SOB Chest pain. COMPARISON: Chest Pa And Lat (2 Views) dated 09/18/2019 FINDINGS: Portable technique limits examination quality. Interstitial opacities are present in both lung bases with underinflated lungs, appearing mildly prog ressive since the comparative study. Interstitial pneumonia is likely. The heart is normal in size. N o displaced fractures. IMPRESSION: Mild worsening in interstitial pneumonia pattern since comparative study.
[2019-09-21] MEDS ORDERED: ONDANSETRON 4 MG/2 ML VIAL IV PRN (15:41)
[2019-09-21] MEDS ORDERED: MORPHINE 2 MG/ML SYR IV PRN (15:41)
[2019-09-21] MEDS: AZITHROMYCIN 250 MG TAB PO SCH (15:43)
[2019-09-21] MEDS ORDERED: HYDRALAZINE HCL 20 MG/ML VIAL IV PRN (15:44)
[2019-09-21] MEDS ORDERED: FUROSEMIDE 40 MG/4 ML VIAL IV ONE (15:47)
[2019-09-21] MEDS ORDERED: POTASSIUM CL 40 MEQ in NA CHLORIDE 0.9% 500 ML IV SCH (16:00)
[2019-09-21 16:01] LABS: Urine Bacteria <20 /HPF (NONE SEEN); Urine Culture Reflex Order NOT NEEDED; Urine RBC <5 /HPF (NONE SEEN)
[2019-09-21 16:05] LABS: Urine Blood NEGATIVE (NEG); Urine Glucose NEGATIVE (NEG); Urine Protein 1+ (NEG)
--- NOTE | 2019-09-21 16:31 | P.HP ---
Certification for Inpatient With expected LOS: <2 Midnights Patient will require the following post-hospital care: None Practitioner: I am a practitioner with admitting privileges, knowledge of patient current condition, hospital course, and medical plan of care. Services: Services provided to patient in accordance with Admission requirements found in Title 42 Section 412.3 of the Code of Federal Regulations Patient History Date of Service: 09/21/19 Reason for admission: Shortness of breath History of Present Illness: 49 yr old male with past medical history of HTN on lisinopril/HCTZ, recently started on Lexapro 2-week ago for insomnia, presented to the ED 3 days ago because of cough and shortness of breath. Covid testing was sent but was started empirically on prednisone 20 mg daily as well as Zithromax. The patient states he did not take the prednisone but was taking the Zithromax. He continued to cough . Cough is distressing and nonproductive, and appear to have worsening shortness of breath and presented back to the ED today. On arrival he was noted to have tachypnea with respiratory rate of to 28 but sat-ting 94% on room air. His Covid test returned positive today . He was noted with hyponatremia at 125 and a potassium of 3.3. He denies any diarrhea, nausea or volume loss. Allergies No Known Allergies Allergy (Verified 09/21/19 16:41) Home medications list reviewed: Yes - Past Medical/Surgical History Has patient received pneumonia vaccine in the past: Yes Diabetic: Yes -: HTN , Insomnia Past Surgical History: Reviewed- Non-Contributory - Family History Family History: Reviewed- Non-Contributory - Social History Smoking Status: Never smoker Smoking therapy provided: No Patient receptive to therapy: No Alcohol use: No CD- Drugs: No Caffeine use: No Place of Residence: Home Review of Systems 10-point ROS is otherwise unremarkable Physical Examination - Physical Exam General: Alert, In no apparent distress, Oriented x3 HEENT: Atraumatic, Normocephalic, PERRLA Neck: Supple, 2+ carotid pulse no bruit, JVD not distended Respiratory: Clear to auscultation bilaterally, Normal air movement, Crackles/rales Cardiovascular: No edema, Normal pulses, Regular rate/rhythm, Normal S1 S2 Gastrointestinal: Normal bowel sounds, Hypoactive, Soft and benign Musculoskeletal: No clubbing, No swelling Integumentary: No rashes, No breakdown, No significant lesion Neurological: Normal speech, Normal strength at 5/5 x4 extr, Normal tone - Studies Laboratory Data (last 24 hrs) 09/21/19 12:56: PT 12.6 H, INR 1.07, APTT 33.0 09/21/19 12:56: WBC 9.9, Hgb 17.2, Hct 49.8 H, Plt Count 184 09/21/19 12:56: Sodium 125 L, Potassium 3.3 L, BUN 11, Creatinine 1.08, Glucose 158 H, Total Bilirubin 0.8, AST 63 H, ALT 81 H, Alkaline Phosphatase 99, Amylase 88, Lipase 418 H Assessment and Plan - Problems (Diagnosis) (1) COVID-19 Current Visit: Yes Status: Acute (2) Pneumonia due to COVID-19 virus Current Visit: Yes Status: Acute (3) HTN (hypertension) Current Visit: Yes Status: Acute (4) Hyponatremia syndrome Current Visit: Yes Status: Acute (5) Hypokalemia Current Visit: Yes Status: Acute - Advance Directives Does patient have a Living Will: No Does patient have a Durable POA for Healthcare: No Physician Review: Patient Assessed, Agree with Above Assessment and Plan Physician Review Additional Text: # Covid Pneumonia - mild symptoms , but worsening -CXR with increased crowding vs fluid overload vs worsening infiltrate although AP view only and not comparable to CXR from 3 days -will admit to observation -will to observation focal treat pneumonia -start Zithromax/Guaifenesin/oxygen PRN/mdi albuterol/dexamethasone 4 mg b.i.d. -Will plan for Dc if tolerating room air -HOLD LISINOPRIL # Hyponatremia - may be due to lisinopril/Lexapro induced SIADH -Also be multifactorial from his HCTZ in a setting of respiratory infection -obtain urine sodium/OsmolalityTSH/uric acid -Start sodium tablets 1 g t.i.d. -Replace potassium -Nephrology to follow # Hypokalemia- replete with KCl IV 40 meq x1 and start 20 b.i.d. -Hold for the lisinopril use # DVT prop- sc lovenox Time Spent Managing Pts Care (In Minutes): 70
[2019-09-21 16:40] VITALS: BMI 25.4
[2019-09-21] MEDS ORDERED: ALBUTEROL INHALER 60 PUFF/8 GM IH PRN (16:54)
[2019-09-21] MEDS ORDERED: POTASSIUM CL 40 MEQ in NA CHLORIDE 0.9% 500 ML IV ONE (18:00)
[2019-09-21] MEDS: SODIUM CHLORIDE 1 GM TAB PO SCH (18:02)
[2019-09-21] MEDS: GUAIFENESIN/DM 5 ML UCUP PO PRN (18:56)
[2019-09-21] MEDS ORDERED: ACETAMINOPHEN 325 MG TABLET PO PRN (20:25)
[2019-09-21] MEDS ORDERED: FAMOTIDINE 20 MG TAB PO SCH (21:00)
[2019-09-21] MEDS: FAMOTIDINE 20 MG/2 ML VIAL IV SCH (21:14)
[2019-09-21] MEDS: dexAMETHasone 4 MG TAB PO SCH (21:16)
[2019-09-21] MEDS: POTASSIUM CL SA 10 MEQ TAB PO SCH (21:16)
[2019-09-21] MEDS: GUAIFENESIN 600 MG SA TAB PO SCH (21:16)
[2019-09-21] MEDS ORDERED: TRAZODONE 50 MG TABLET ONE (22:42)
[2019-09-22] MEDS: GUAIFENESIN/DM 5 ML UCUP PO PRN ×2 (03:51→09:38)
[2019-09-22 07:32] LABS: Absolute Lymphocytes (CBC) 0.5 K/uL (0.7-4.9); Basophils % 0.3 % (0-1.3); Hematocrit 49.2 % (39.6-49.0); Lymphocytes % 8.2 % (15.3-44.8); MPV 9.8 fL (7.6-11.3); RBC Red Blood Cell Count 5.73 M/uL (4.33-5.43)
[2019-09-22 07:40] LABS: Albumin 2.7 g/dL (3.4-5.0); Bilirubin Total 0.7 mg/dL (0.2-1.0); Potassium 4.6 mmol/L (3.5-5.1); Protein, Total 6.9 g/dL (6.4-8.2)
[2019-09-22] MEDS: FAMOTIDINE 20 MG/2 ML VIAL IV SCH (08:03)
[2019-09-22] MEDS: SODIUM CHLORIDE 1 GM TAB PO SCH (08:03)
[2019-09-22] MEDS: GUAIFENESIN 600 MG SA TAB PO SCH (08:04)
[2019-09-22] MEDS: AZITHROMYCIN 250 MG TAB PO SCH (08:04)
[2019-09-22] MEDS: POTASSIUM CL SA 10 MEQ TAB PO SCH (08:04)
[2019-09-22] MEDS: dexAMETHasone 4 MG TAB PO SCH (08:04)
[2019-09-22] MEDS ORDERED: ASPIRIN EC 81 MG TAB PO SCH (09:00)
[2019-09-22] MEDS ORDERED: ENOXAPARIN 60 MG/0.6 ML SQ SCH (09:00)
[2019-09-22 09:05] VITALS: BP 123/76; TEMP 98; O2SAT 92
--- NOTE | 2019-09-22 09:36 | P.DS ---
Admission Date: 09/22/19 Discharge Date: 09/22/19 Disposition: ROUTINE DISCHARGE Discharge Condition: GOOD Reason for Admission: Shortness of breath - Problems (1) COVID-19 Current Visit: Yes Status: Acute (2) Pneumonia due to COVID-19 virus Current Visit: Yes Status: Acute (3) HTN (hypertension) Current Visit: Yes Status: Acute (4) Hyponatremia syndrome Current Visit: Yes Status: Acute (5) Hypokalemia Current Visit: Yes Status: Acute Brief History of Present Illness: 49 yr old male with past medical history of HTN on lisinopril/HCTZ, recently started on Lexapro 2-week ago for insomnia, presented to the ED 3 days ago because of cough and shortness of breath. Covid testing was sent but was started empirically on prednisone 20 mg daily as well as Zithromax. The patient states he did not take the prednisone but was taking the Zithromax. He continued to cough . Cough is distressing and nonproductive, and appear to have worsening shortness of breath and presented back to the ED today. On arrival he was noted to have tachypnea with respiratory rate of to 28 but sat-ting 94% on room air. His Covid test returned positive today . He was noted with hyponatremia at 125 and a potassium of 3.3. He denies any diarrhea, nausea or volume loss. Hospital Course: Patient was admitted . He received IV and po potassium correction as well as lasix to keep him dry given Covid pneumonia . His sodium improved from 125 to 135 with salt tabs and lasix . His lexapro was held and lisinopril- hctz changed to amlodipine . His oxygenation remain above 94% with reported increasing 02 sat with activity although he continue to hav cough symptoms . He will be dc home today on decadron and prn antitussive meds . Follow with PCP in 3-5 days Vital Signs/Physical Exam: Temp Pulse Resp BP Pulse Ox 98 F 78 18 123/76 92 09/22/19 08:00 09/22/19 08:00 09/22/19 08:00 09/22/19 08:00 09/22/19 08:00 General: Alert, In no apparent distress, Oriented x3 HEENT: Atraumatic, Normocephalic, PERRLA Neck: Supple, 2+ carotid pulse no bruit, JVD not distended Cardiovascular: No edema, Normal pulses, Regular rate/rhythm Gastrointestinal: Normal bowel sounds, Soft and benign, W/out succussion splash Musculoskeletal: No clubbing, No swelling Neurological: Normal gait, Normal speech, Normal strength at 5/5 x4 extr Laboratory Data at Discharge: WBC 6.6 K/uL (4.3-10.9) D 09/22/19 06:52 Hgb 16.6 g/dL (13.6-17.9) 09/22/19 06:52 Hct 49.2 % (39.6-49.0) H 09/22/19 06:52 Plt Count 178 K/uL (152-406) 09/22/19 06:52 PT 12.6 SECONDS (9.5-12.5) H 09/21/19 12:56 INR 1.07 09/21/19 12:56 APTT 33.0 SECONDS (24.3-36.9) 09/21/19 12:56 Sodium 135 mmol/L (136-145) L 09/22/19 06:52 Potassium 4.6 mmol/L (3.5-5.1) 09/22/19 06:52 BUN 12 mg/dL (7-18) 09/22/19 06:52 Creatinine 0.96 mg/dL (0.55-1.3) 09/22/19 06:52 Glucose 149 mg/dL (74-106) H 09/22/19 06:52 Total Bilirubin 0.7 mg/dL (0.2-1.0) 09/22/19 06:52 AST 100 U/L (15-37) H 09/22/19 06:52 ALT 137 U/L (12-78) H 09/22/19 06:52 Alkaline Phosphatase 111 U/L (45-117) 09/22/19 06:52 Amylase 88 U/L (25-115) 09/21/19 12:56 Lipase 418 U/L (73-393) H 09/21/19 12:56 Home Medications: Amlodipine Besylate [Norvasc] 5 mg PO DAILY #30 tablet 09/22/19 Dexamethasone [Decadron] 6 mg PO DAILY #7 tablet 09/22/19 RX: Aspirin 325 mg PO DAILY #30 tablet 06/28/20 guaiFENesin [Guaifenesin] 400 mg PO QID #28 tablet 09/22/19 New Medications: RX: Aspirin 325 mg PO DAILY #30 tablet Dexamethasone [Decadron] 6 mg PO DAILY #7 tablet guaiFENesin [Guaifenesin] 400 mg PO QID #28 tablet Amlodipine Besylate [Norvasc] 5 mg PO DAILY #30 tablet Patient Discharge Instructions: - Take cough meds as precribed. -Return to ER if recurrent fever or SOB Diet: Regular Activity: Ad rosemary Time spent managing pt's care (in minutes): 35
[2019-09-22] MEDS ORDERED: TRAZODONE 50 MG TABLET PO ONE (22:30)
== END 2019-09-22 10:40 | disposition home or self-care (01) | DRG 177 ==
LOC: ER 12:21 → ERHOLD 15:41 → 4TH 16:53 → OBSVTOIN 09-22 07:51
PROVIDERS: ADMIT Internal Medicine; ATTEND Internal Medicine
DX: U07.1 COVID-19 (principal); J12.89 Other viral pneumonia; E87.1 Hypo-osmolality and hyponatremia; I10 Essential (primary) hypertension; E87.6 Hypokalemia; G47.00 Insomnia, unspecified; Z79.82 Long term (current) use of aspirin; Z79.899 Other long term (current) drug therapy
CPT/HCPCS: 36415; 71045; 80048; 80053; 80076; 81003; 81015; 82150; 82550; 82553; 82570; 83605; 83690; 83930; 84145; 84300; 84443; 84484; 85025; 85610; 85730; 87040; 93005; 96365; 99285; G0378; J0696; J1650; J1940; J7030; J7040; J8540

== ENCOUNTER 2019-10-07 13:33 | Emergency (ER) | payer SELFPAY ==
[2019-10-07] MEDS ORDERED: HYDROCODONE/CHLORPHEN 5 ML/OSYR ONE (15:27)
--- NOTE | 2019-10-07 15:56 | RAD REPORT ---
EXAM DESCRIPTION: RAD - Chest Single View - 10/07/2019 3:46 pm CLINICAL HISTORY: COUGH Chest pain. COMPARISON: Chest Single View dated 09/21/2019; Chest Pa And Lat (2 Views) dated 09/18/2019 FINDINGS: Portable technique limits examination quality. Mild interstitial pulmonary opacities bilaterally most compatible with interstitial pneumonitis. The heart is normal in size. No displaced fractures.
--- NOTE | 2019-10-07 16:18 | EDPHYS ---
Physician Documentation [facility] Name: Brandon Zhang Age: 49 yrs Sex: Male : 1970 Arrival Date: 10/07/2019 Time: 13:41 Bed 20 Private MD: ED Physician Torin Delgado HPI: 10/06 16:07 This 49 yrs old Male presents to ER via Ambulatory with complaints of Cough, pm1 Cold Symptoms. 16:07 The patient or guardian reports cough, with no sputum. Onset: The symptoms/episode pm1 began/occurred 2 week(s) ago. Severity of symptoms: in the emergency department the symptoms have improved, patient no longer has any shortness of breath, but his concerned that he has a continuing cough. Modifying factors: The symptoms are alleviated by nothing. Associated signs and symptoms: Pertinent negatives: chest pain, ear ache, fever, nausea, sore throat, vomiting, SOB. The patient has not experienced similar symptoms in the past. The patient has not recently seen a physician. Historical: - Allergies: 13:53 No Known Allergies; ll1 - PMHx: 13:53 Hypertension; ll1 - Immunization history:: Adult Immunizations unknown. - Social history:: Smoking status: Patient denies any tobacco usage or history of. Patient uses alcohol, only on a social basis. Patient/guardian denies using street drugs. ROS: 16:08 Constitutional: Negative for fever, chills, and weight loss, Eyes: Negative for injury, pm1 pain, redness, and discharge, ENT: Negative for injury, pain, and discharge, Neck: Negative for injury, pain, and swelling, Cardiovascular: Negative for chest pain, palpitations, and edema. 16:08 Abdomen/GI: Negative for abdominal pain, nausea, vomiting, diarrhea, and constipation, Back: Negative for injury and pain, MS/Extremity: Negative for injury and deformity, Skin: Negative for injury, rash, and discoloration, Neuro: Negative for headache, weakness, numbness, tingling, and seizure. 16:08 Respiratory: Positive for cough, Negative for shortness of breath, sputum production, wheezing. Exam: 16:08 Constitutional: This is a well developed, well nourished patient who is awake, alert, pm1 and in no acute distress. Head/Face: Normocephalic, atraumatic. Eyes: Pupils equal round and reactive to light, extra-ocular motions intact. Lids and lashes normal. Conjunctiva and sclera are non-icteric and not injected. Cornea within normal limits. Periorbital areas with no swelling, redness, or edema. ENT: Nares patent. No nasal discharge, no septal abnormalities noted. Tympanic membranes are normal and external auditory canals are clear. Oropharynx with no redness, swelling, or masses, exudates, or evidence of obstruction, uvula midline. Mucous membranes moist. Neck: Trachea midline, no thyromegaly or masses palpated, and no cervical lymphadenopathy. Supple, full range of motion without nuchal rigidity, or vertebral point tenderness. No Meningismus. Chest/axilla: Normal chest wall appearance and motion. Nontender with no deformity. No lesions are appreciated. Cardiovascular: Regular rate and rhythm with a normal S1 and S2. No gallops, murmurs, or rubs. Normal PMI, no JVD. No pulse deficits. Respiratory: Lungs have equal breath sounds bilaterally, clear to auscultation and percussion. No rales, rhonchi or wheezes noted. No increased work of breathing, no retractions or nasal flaring. Abdomen/GI: Soft, non-tender, with normal bowel sounds. No distension or tympany. No guarding or rebound. No evidence of tenderness throughout. Back: No spinal tenderness. No costovertebral tenderness. Full range of motion. Skin: Warm, dry with normal turgor. Normal color with no rashes, no lesions, and no evidence of cellulitis. MS/ Extremity: Pulses equal, no cyanosis. Neurovascular intact. Full, normal range of motion. 16:08 Neuro: Exam negative for acute changes, Orientation: is normal, Mentation: is normal, Motor: is normal, moves all fours, Sensation: is normal, no obvious gross deficits. 16:10 Skin: phlegmon 0.5 cm in diameter to left upper lip. No fluctuance, surrounding pm1 cellulitis, or pointing. Vital Signs: 13:53 BP 147 / 106; Pulse 90; Resp 18; Temp 98.4; Pulse Ox 95% ; Pain 7/10; ll1 MDM: 15:05 Patient medically screened. pm1 16:07 Data reviewed: vital signs. Data interpreted: Pulse oximetry: on room air is 95 %. pm1 Interpretation: normal. 16:16 Counseling: I had a detailed discussion with the patient and/or guardian regarding: the pm1 historical points, exam findings, and any diagnostic results supporting the discharge/admit diagnosis, radiology results, the need for outpatient follow up, to return to the emergency department if symptoms worsen or persist or if there are any questions or concerns that arise at home. 10/06 15:12 Order name: Chest Single View XRAY; Complete Time: 15:58 pm1 Administered Medications: 15:26 Drug: Tussionex Pennkinetic ER 5 ml Route: PO; Disposition: 10/07 05:45 Co-signature as Attending Physician, Torin Delgado MD I agree with the assessment and [facility] plan of care. Disposition: 10/07/19 16:17 Discharged to Home. Impression: Coronavirus as the cause of diseases classified elsewhere. - Condition is Stable. - Discharge Instructions: COVID-19. - Prescriptions for Guaifenesin AC 10- 100 mg/5 mL Oral Liquid - take 10 milliliter by ORAL route every 4 hours As needed; 240 milliliter. Doxycycline Hyclate 100 mg Oral Tablet - take 1 tablet by ORAL route every 12 hours; 20 tablet. - Medication Reconciliation Form, Thank You Letter, Antibiotic Education, Prescription Opioid Use form. - Follow up: Emergency Department; When: As needed; Reason: Worsening of condition. Follow up: Private Physician; When: 2 - 3 days; Reason: Recheck today's complaints, Continuance of care, Re-evaluation by your physician. - Problem is new. - Symptoms have improved. Signatures: Dispatcher [employer] EDUT Torin Delgado MD MD cha Marinas, Patrick, SHANAE CONSUMER ELECTRONIC RETAIL SPECIALIST pm1 Cee Stack RN RN Ana Beck RN RN ll1 Corrections: (The following items were deleted from the chart) 10/06 16:52 16:17 10/07/2019 16:17 Discharged to Home. Impression: Coronavirus as the cause of diseases classified elsewhere. Condition is Stable. Forms are Medication Reconciliation Form, Thank You Letter, Antibiotic Education, Prescription Opioid Use. Follow up: Emergency Department; When: As needed; Reason: Worsening of condition. Follow up: Private Physician; When: 2 - 3 days; Reason: Recheck today's complaints, Continuance of care, Re-evaluation by your physician. Problem is new. Symptoms have improved. pm1 10/07 01:22 10/06 16:08 Constitutional: This is a well developed, well nourished patient who is pm1 awake, alert, and in no acute distress. Head/Face: Normocephalic, atraumatic. Eyes: Pupils equal round and reactive to light, extra-ocular motions intact. Lids and lashes normal. Conjunctiva and sclera are non-icteric and not injected. Cornea within normal limits. Periorbital areas with no swelling, redness, or edema. ENT: Nares patent. No nasal discharge, no septal abnormalities noted. Tympanic membranes are normal and external auditory canals are clear. Oropharynx with no redness, swelling, or masses, exudates, or evidence of obstruction, uvula midline. Mucous membranes moist. Neck: Trachea midline, no thyromegaly or masses palpated, and no cervical lymphadenopathy. Supple, full range of motion without nuchal rigidity, or vertebral point tenderness. No Meningismus. Chest/axilla: Normal chest wall appearance and motion. Nontender with no deformity. No lesions are appreciated. Cardiovascular: Regular rate and rhythm with a normal S1 and S2. No gallops, murmurs, or rubs. Normal PMI, no JVD. No pulse deficits. Respiratory: Lungs have equal breath sounds bilaterally, clear to auscultation and percussion. No rales, rhonchi or wheezes noted. No increased work of breathing, no retractions or nasal flaring. Abdomen/GI: Soft, non-tender, with normal bowel sounds. No distension or tympany. No guarding or rebound. No evidence of tenderness throughout. Back: No spinal tenderness. No costovertebral tenderness. Full range of motion. Skin: Warm, dry with normal turgor. Normal color with no rashes, no lesions, and no evidence of cellulitis. MS/ Extremity: Pulses equal, no cyanosis. Neurovascular intact. Full, normal range of motion. pm1
--- NOTE | 2019-10-07 16:18 | ER ---
Nurse's Notes [facility] Name: Brandon Zhang Age: 49 yrs Sex: Male : 1970 Arrival Date: 10/07/2019 Time: 13:41 Bed 20 Private MD: Diagnosis: Coronavirus as the cause of diseases classified elsewhere Presentation: 10/06 13:53 Chief complaint: Patient states: Cough and upper back pain continues for past two ll1 weeks. Admitted two weeks ago for covid +. No further fevers. Diarrhea for 2 days. Coronavirus screen: Surgical mask placed on patient. Patient moved to private room, placed in contact and droplet isolation with eye protection until further assessment. Patient reports a cough. Patient reports shortness of breath or difficulty breathing. Patient denies measured and/or subjective temperature greater than 100.4F prior to today's visit. Patient denies travel on a cruise ship or to a country the [facility] currently lists as an affected area. Patient reports contact with known and/or suspected case of COVID-19. Ebola Screen: Patient denies travel to an Ebola-affected area in the 21 days before illness onset. Initial Sepsis Screen: Does the patient meet any 2 criteria? No. Patient's initial sepsis screen is negative. Does the patient have a suspected source of infection?. Risk Assessment: Do you want to hurt yourself or someone else? Patient reports no desire to harm self or others. Onset of symptoms was September 21, 2019. 13:53 Method Of Arrival: Ambulatory ll1 13:53 Acuity: MAYURI 4 ll1 Historical: - Allergies: 13:53 No Known Allergies; ll1 - PMHx: 13:53 Hypertension; ll1 - Immunization history:: Adult Immunizations unknown. - Social history:: Smoking status: Patient denies any tobacco usage or history of. Patient uses alcohol, only on a social basis. Patient/guardian denies using street drugs. Screenin:34 Abuse screen: Denies threats or abuse. Nutritional screening: No deficits noted. Tuberculosis screening: No symptoms or risk factors identified. Fall Risk None identified. Assessment: 15:32 General: Appears in no apparent distress. Behavior is calm, cooperative, appropriate for age. Pain: Denies pain. Neuro: Level of Consciousness is awake, alert, obeys commands, Oriented to person, place, time, situation, Appropriate for age. Cardiovascular: Capillary refill < 3 seconds Patient's skin is warm and dry. Respiratory: Airway is patent Respiratory effort is even, unlabored, Respiratory pattern is regular, symmetrical, Onset: The symptoms/episode began/occurred 2+ weeks, the patient has mild shortness of breath. Derm: Skin is intact, is healthy with good turgor. 16:51 Reassessment: Pt given discharge instructions and educated on prescriptions. Pt voiced understanding. Vital Signs: 13:53 BP 147 / 106; Pulse 90; Resp 18; Temp 98.4; Pulse Ox 95% ; Pain 7/10; ll1 ED Course: 13:41 Patient arrived in ED. fj1 13:56 Triage completed. ll1 13:56 Arm band placed on Patient notified of wait time. ll1 14:13 Cee Stack, RN is Primary Nurse. 15:01 Mina Urban NP is PHCP. pm1 15:01 Torin Delgado MD is Attending Physician. pm1 15:34 Patient has correct armband on for positive identification. Placed in gown. Bed in low ah position. Call light in reach. 15:46 Chest Single View XRAY In Process Unspecified. EDMS 16:51 No provider procedures requiring assistance completed. Patient did not have IV access ah during this emergency room visit. Administered Medications: 15:26 Drug: Tussionex Pennkinetic ER 5 ml Route: PO; Outcome: 16:17 Discharge ordered by . pm1 16:51 Discharged to home ambulatory. 16:51 Condition: good 16:51 Discharge instructions given to patient, Instructed on discharge instructions, follow up and referral plans. Demonstrated understanding of instructions, follow-up care, medications, Prescriptions given X 2. 16:52 Patient left the ED. Signatures: Dispatcher [employer] EDGA Mina Urban NP [employer] SOLUTION ARCHITECT pm1 Chirag Cespedes fj1 Cee Stack, RN RN Ana Beck RN RN [facility]
[2019-10-07 17:05] VITALS: BP 147/106; TEMP 98.4; O2SAT 95
== END 2019-10-07 16:52 | disposition home or self-care (01) ==
LOC: ER 13:33
DX: U07.1 COVID-19 (principal)
CPT/HCPCS: 71045; 99283

== ENCOUNTER 2020-08-17 12:14 | Emergency (ER) | payer SELFPAY ==
[2020-08-17 15:05] LABS: SARS-COV-2 RT PCR NEGATIVE (NEGATIVE)
--- NOTE | 2020-08-17 16:15 | EDPHYS ---
Physician Documentation [facility] Name: Brandon Zhang Age: 50 yrs Sex: Male : 1970 Arrival Date: 08/17/2020 Time: 12:16 Bed 30 Private MD: ED Physician Torin Delgado HPI: 08/17 14:56 This 50 yrs old Male presents to ER via Ambulatory with complaints of Cough, pm1 Sore Throat. 14:56 The patient or guardian reports cough, with no sputum, sore throat. Onset: The pm1 symptoms/episode began/occurred 1 month(s) ago. Severity of symptoms: in the emergency department the symptoms are unchanged. Modifying factors: The symptoms are alleviated by nothing, the symptoms are aggravated by nothing. Associated signs and symptoms: Pertinent negatives: chest pain, fever, shortness of breath. The patient has been recently seen by a physician: with similar presenting complaints, and apparently given a diagnosis of allergies. medications for allergy treatment. Historical: - Allergies: 12:30 No Known Allergies; ca1 - Home Meds: 12:30 lisinopril Oral [Active]; ca1 - PMHx: 12:30 Hypertension; ca1 - PSHx: 12:30 None; ca1 - Immunization history:: Client reports receiving the 1st dose of the Covid vaccine, Flu vaccine is not up to date. - Social history:: Smoking status: Patient denies any tobacco usage or history of. ROS: 14:56 Constitutional: Negative for fever, chills, and weight loss, Eyes: Negative for injury, pm1 pain, redness, and discharge. 14:56 Neck: Negative for injury, pain, and swelling, Cardiovascular: Negative for chest pain, palpitations, and edema. 14:56 Abdomen/GI: Negative for abdominal pain, nausea, vomiting, diarrhea, and constipation, Back: Negative for injury and pain, MS/Extremity: Negative for injury and deformity, Skin: Negative for injury, rash, and discoloration, Neuro: Negative for headache, weakness, numbness, tingling, and seizure. 14:56 ENT: Positive for sore throat, Negative for ear pain, difficulty swallowing, difficulty handling secretions, hoarseness. 14:56 Respiratory: Positive for cough, Negative for shortness of breath. Exam: 14:56 Constitutional: This is a well developed, well nourished patient who is awake, alert, pm1 and in no acute distress. Head/Face: Normocephalic, atraumatic. Eyes: Pupils equal round and reactive to light, extra-ocular motions intact. Lids and lashes normal. Conjunctiva and sclera are non-icteric and not injected. Cornea within normal limits. Periorbital areas with no swelling, redness, or edema. 14:56 Back: No spinal tenderness. No costovertebral tenderness. Full range of motion. Skin: Warm, dry with normal turgor. Normal color with no rashes, no lesions, and no evidence of cellulitis. MS/ Extremity: Pulses equal, no cyanosis. Neurovascular intact. Full, normal range of motion. 14:56 ENT: Exam is negative for acute changes, TM's: are normal, Nose: is normal, Mouth: is normal, no acute changes, Lips: normal, Oral mucosa: normal, pink and intact, moist, Posterior pharynx: Airway: normal, no evidence of obstruction, Tonsils: bilaterally enlarged, with erythema, no exudate, no ulcerations, erythema, that is mild, peritonsillar mass, is not appreciated. 14:56 Cardiovascular: Exam negative for acute changes, Rate: normal, Rhythm: regular, Pulses: no pulse deficits are appreciated. 14:56 Respiratory: Exam negative for acute changes, respiratory distress, shortness of breath. 14:56 Neuro: Exam negative for acute changes, Orientation: is normal, Mentation: is normal, Gait: is steady, at a normal pace, without difficulty. Vital Signs: 12:28 BP 109 / 81; Pulse 64; Resp 18 S; Temp 97.5(TE); Pulse Ox 99% on R/A; Weight 79.38 kg ca1 (R); Height 5 ft. 6 in. (167.64 cm) (R); Pain 0/10; 12:28 Body Mass Index 28.25 (79.38 kg, 167.64 cm) ca1 MDM: 14:56 Patient medically screened. adebayo 16:13 Data reviewed: vital signs. Data interpreted: Pulse oximetry: on room air is 99 %. pm1 Interpretation: normal. Counseling: I had a detailed discussion with the patient and/or guardian regarding: the historical points, exam findings, and any diagnostic results supporting the discharge/admit diagnosis, lab results, the need for outpatient follow up, to return to the emergency department if symptoms worsen or persist or if there are any questions or concerns that arise at home. 08/17 12:32 Order name: Strep; Complete Time: 14:55 ca1 08/17 14:41 Order name: Throat Culture EDME 08/17 15:05 Order name: COVID-19/FLU A+B; Complete Time: 15:30 EDMS Administered Medications: 16:21 Drug: Tussionex Pennkinetic ER (chlorpheniramine-hydrocodone) 5 ml Route: PO; ll1 16:21 Follow up: Response: No adverse reaction; RASS: Alert and Calm (0) ll1 16:22 Follow up: Response: No adverse reaction; RASS: Alert and Calm (0) ll1 Disposition: 08/18 10:01 Co-signature as Attending Physician, Torin Delgado MD I agree with the assessment and adebayo plan of care. Disposition: 08/17/20 16:14 Discharged to Home. Impression: Acute upper respiratory infection, unspecified. - Condition is Stable. - Discharge Instructions: Upper Respiratory Infection, Adult, Viral Respiratory Infection. - Prescriptions for Guaifenesin AC 10- 100 mg/5 mL Oral Liquid - take 10 milliliter by ORAL route every 4 hours As needed; 240 milliliter. - Medication Reconciliation Form, Thank You Letter, Antibiotic Education, Prescription Opioid Use form. - Follow up: Emergency Department; When: As needed; Reason: Worsening of condition. Follow up: Private Physician; When: 2 - 3 days; Reason: Recheck today's complaints, Continuance of care, Re-evaluation by your physician. - Problem is new. - Symptoms have improved. Signatures: Dispatcher [employer] Torin Anthony MD MD cha Marinas, Patrick, SHANAE SECURITY ADVISOR pm1 Rosa Weiss RN RN ca1 Ana Beck RN RN ll1 Corrections: (The following items were deleted from the chart) 08/17 14:13 12:32 CORONAVIRUS+MR.LAB.BRZ ordered. [facility] 14:14 12:32 Influenza Screen (A \T\ B)+BA.LAB.BRZ ordered. [facility] EDME 16:23 16:14 08/17/2020 16:14 Discharged to Home. Impression: Acute upper respiratory ll1 infection, unspecified. Condition is Stable. Forms are Medication Reconciliation Form, Thank You Letter, Antibiotic Education, Prescription Opioid Use. Follow up: Emergency Department; When: As needed; Reason: Worsening of condition. Follow up: Private Physician; When: 2 - 3 days; Reason: Recheck today's complaints, Continuance of care, Re-evaluation by your physician. Problem is new. Symptoms have improved. pm1
--- NOTE | 2020-08-17 16:15 | ER ---
Nurse's Notes [facility] Name: Brandon Zhang Age: 50 yrs Sex: Male : 1970 Arrival Date: 08/17/2020 Time: 12:16 Bed 30 Private MD: Diagnosis: Acute upper respiratory infection, unspecified Presentation: 08/17 12:28 Chief complaint: Patient states: Cough x 1 month, sore throat x 4 days. Denies fever. ca1 Coronavirus screen: Client denies travel out of the [place] in the last 14 days. cough unrelated to allergies, sore throat, Client presents with at least one sign or symptom that may indicate coronavirus-19. Standard/surgical mask placed on the client. Provider contacted for isolation considerations. Ebola Screen: Patient negative for fever greater than or equal to 101.5 degrees Fahrenheit, and additional compatible Ebola Virus Disease symptoms Patient denies exposure to infectious person. Patient denies travel to an Ebola-affected area in the 21 days before illness onset. No symptoms or risks identified at this time. Initial Sepsis Screen: Does the patient meet any 2 criteria? No. Patient's initial sepsis screen is negative. Does the patient have a suspected source of infection? No. Patient's initial sepsis screen is negative. Risk Assessment: Do you want to hurt yourself or someone else? Patient reports no desire to harm self or others. Onset of symptoms was August 17, 2020. 12:28 Method Of Arrival: Ambulatory ca1 12:28 Acuity: MAYURI 3 ca1 12:30 Note Requests to see SHANAE Enriquez since he saw him before. ca1 Historical: - Allergies: 12:30 No Known Allergies; ca1 - Home Meds: 12:30 lisinopril Oral [Active]; ca1 - PMHx: 12:30 Hypertension; ca1 - PSHx: 12:30 None; ca1 - Immunization history:: Client reports receiving the 1st dose of the Covid vaccine, Flu vaccine is not up to date. - Social history:: Smoking status: Patient denies any tobacco usage or history of. Screenin:58 Abuse screen: Denies threats or abuse. Nutritional screening: No deficits noted. ll1 Tuberculosis screening: No symptoms or risk factors identified. Fall Risk None identified. Total Patel Fall Scale indicates No Risk (0-24 pts). Assessment: 14:57 General: Appears in no apparent distress. Behavior is calm, cooperative, appropriate ll1 for age. Pain: Complains of pain in throat Quality of pain is described as aching, Aggravated by eating, drinking. Neuro: No deficits noted. Cardiovascular: No deficits noted. Respiratory: Airway is patent Trachea midline Respiratory effort is even, unlabored, Respiratory pattern is regular, symmetrical, Breath sounds are clear bilaterally. Respiratory: Reports cough that is non-productive. EENT: Throat is reddened Reports pain when swallowing. 16:00 Reassessment: No changes from previously documented assessment. Patient and/or family ll1 updated on plan of care and expected duration. Pain level reassessed. Vital Signs: 12:28 BP 109 / 81; Pulse 64; Resp 18 S; Temp 97.5(TE); Pulse Ox 99% on R/A; Weight 79.38 kg ca1 (R); Height 5 ft. 6 in. (167.64 cm) (R); Pain 0/10; 12:28 Body Mass Index 28.25 (79.38 kg, 167.64 cm) ca1 ED Course: 12:16 Patient arrived in ED. as 12:29 Triage completed. ca1 12:30 Arm band placed on right wrist. ca1 12:34 Strep Sent. ca1 14:48 Patient placed in an exam room, on a stretcher. ll1 14:55 Mina Urban NP is PHCP. pm1 14:55 Torin Delgado MD is Attending Physician. pm1 14:57 Ana Beck, TIGRE is Primary Nurse. ll1 14:59 Patient has correct armband on for positive identification. Bed in low position. Call ll1 light in reach. Side rails up X 1. Cardiac monitoring not applicable on this patient. 16:22 No provider procedures requiring assistance completed. Patient did not have IV access ll1 during this emergency room visit. Administered Medications: 16:21 Drug: Tussionex Pennkinetic ER (chlorpheniramine-hydrocodone) 5 ml Route: PO; ll1 16:21 Follow up: Response: No adverse reaction; RASS: Alert and Calm (0) ll1 16:22 Follow up: Response: No adverse reaction; RASS: Alert and Calm (0) ll1 Outcome: 16:14 Discharge ordered by . pm1 16:22 Discharged to home ambulatory. ll1 16:22 Condition: stable 16:22 Discharge instructions given to patient, Instructed on discharge instructions, follow up and referral plans. no drinking with medication, no driving heavy equipment, medication usage, Demonstrated understanding of instructions, follow-up care, medications, Prescriptions given X 1. 16:23 Patient left the ED. ll1 Signatures: Lexus Hassan Patrick HIGH SCHOOL ACADEMIC COACH HIGH SCHOOL ACADEMIC COACH pm1 Rosa Weiss RN RN ca1 Ana Beck RN RN ll1 Corrections: (The following items were deleted from the chart) 14:13 12:34 CORONAVIRUS+MR.LAB.BRZ drawn and sent. ca1 EDMS 14:14 12:34 Influenza Screen (A \T\ B)+BA.LAB.BRZ drawn and sent. ca1 EDMS
[2020-08-17] MEDS ORDERED: HYDROCODONE/CHLORPHEN 5 ML/OSYR ONE (16:37)
[2020-08-17 16:38] VITALS: BP 109/81; TEMP 97.5; O2SAT 99
== END 2020-08-17 16:23 | disposition home or self-care (01) ==
LOC: ER 12:14
DX: J06.9 Acute upper respiratory infection, unspecified (principal); Z20.822 Contact with and (suspected) exposure to COVID-19; I10 Essential (primary) hypertension
CPT/HCPCS: 0240U; 87070; 87081; 99283

== ENCOUNTER 2021-11-30 20:22 | Emergency (ER) | payer SELFPAY ==
--- OUTSIDE RECORDS SUMMARY | 2021-11-30 20:28 | XMS REPORT | Continuity of Care Document ---
:1970 Author Organization [facility] t Address [address] [place] [address] Dr. Sheldon [address] [place] [id number] Care Team Providers Name Role Phone Unavailable Unavailable Unavailable Problems This patient has no known problems. Allergies, Adverse Reactions, Alerts This patient has no known allergies or adverse reactions. Medications This patient has no known medications. Procedures This patient has no known procedures. Encounters Start End Encounter Admission Attending Care Care Encounter Source Date/Time Date/Time Type Type Clinicians Facility Department ID 2019-11-13 2019-11-13 Outpatient [facility] 00:00:00 00:00:00 [id number] 3 Results This patient has no known results.
[2021-11-30] MEDS ORDERED: MORPHINE 4 MG/ML SYR ONE (22:20)
--- NOTE | 2021-11-30 22:24 | ER ---
Nurse's Notes [facility] Name: Brandon Zhang Age: 51 yrs Sex: Male : 1970 Arrival Date: 11/30/2021 Time: 20:24 Bed 14 Private MD: Diagnosis: Disorder of teeth and supporting structures, unspecified Presentation: 11/30 20:36 Chief complaint: Patient states: Pt reports having dental procedure in 2019 - ld1 "endodoncio". Pt c/o dental pain - last time I had this pain they gave me antibiotics. Coronavirus screen: At this time, the client does not indicate any symptoms associated with coronavirus-19. Ebola Screen: No symptoms or risks identified at this time. Initial Sepsis Screen: Does the patient meet any 2 criteria? No. Patient's initial sepsis screen is negative. Does the patient have a suspected source of infection? No. Patient's initial sepsis screen is negative. Risk Assessment: Do you want to hurt yourself or someone else? Patient reports no desire to harm self or others. Onset of symptoms was November 30, 2021. 20:36 Method Of Arrival: Ambulatory ld1 20:36 Acuity: MAYURI 4 ld1 Triage Assessment: 20:39 General: Appears in no apparent distress. uncomfortable, Behavior is calm, cooperative, ld1 appropriate for age. Pain: Complains of pain in lower left third molar, lower left second molar, lower left first molar and lower left second bicuspid Pain does not radiate. Pain currently is 9 out of 10 on a pain scale. Quality of pain is described as throbbing. EENT: No signs and/or symptoms were reported regarding the EENT system. Neuro: Level of Consciousness is awake, alert, obeys commands, Oriented to person, place, time, situation. Cardiovascular: Capillary refill < 3 seconds Patient's skin is warm and dry. Respiratory: Airway is patent Respiratory effort is even, unlabored. GI: Abdomen is flat, non-distended. : No signs and/or symptoms were reported regarding the genitourinary system. Derm: No signs and/or symptoms reported regarding the dermatologic system. Musculoskeletal: No signs and/or symptoms reported regarding the musculoskeletal system. Historical: - Allergies: 20:39 No Known Allergies; ld1 - PMHx: 20:39 Hypertension; ld1 - PSHx: 20:39 None; ld1 - Immunization history:: Adult Immunizations up to date, Client reports receiving the 2nd dose of the Covid vaccine. - Social history:: Smoking status: Patient denies any tobacco usage or history of. Patient uses alcohol, occasionally. Screenin:30 Abuse screen: Denies threats or abuse. Nutritional screening: No deficits noted. jb4 Tuberculosis screening: No symptoms or risk factors identified. Fall Risk None identified. Assessment: 21:30 General: Appears in no apparent distress. uncomfortable, Behavior is calm, cooperative, jb4 appropriate for age. Pain: Complains of pain in mouth. Neuro: Level of Consciousness is awake, alert, obeys commands, Oriented to person, place, time, situation. Cardiovascular: Patient's skin is warm and dry. Respiratory: Airway is patent Respiratory effort is even, unlabored, Respiratory pattern is regular, symmetrical. GI: No signs and/or symptoms were reported involving the gastrointestinal system. : No signs and/or symptoms were reported regarding the genitourinary system. EENT: No signs and/or symptoms were reported regarding the EENT system. Derm: Skin is intact, Skin is pink, warm \\T\\ dry. Musculoskeletal: Circulation, motion, and sensation intact. Range of motion: intact in all extremities. 22:39 Reassessment: Patient appears in no apparent distress at this time. Patient and/or jb4 family updated on plan of care and expected duration. Pain level reassessed. Patient is alert, oriented x 3, equal unlabored respirations, skin warm/dry/pink. Vital Signs: 20:36 BP 145 / 106; Pulse 78; Resp 18; Temp 98.1(O); Pulse Ox 98% on R/A; Weight 77.11 kg; ld1 Height 5 ft. 6 in. (167.64 cm); Pain 9/10; 20:36 Body Mass Index 27.44 (77.11 kg, 167.64 cm) ld1 ED Course: 20:24 Patient arrived in ED. jj6 20:39 Triage completed. ld1 20:39 Arm band placed on right wrist. ld1 21:09 Torin Waller PA is PHCP. cp 21:09 Torin Delgado MD is Attending Physician. cp 21:30 Patient has correct armband on for positive identification. Bed in low position. Call jb4 light in reach. Side rails up X 1. 22:04 Coy Arana, RN is Primary Nurse. jb4 22:40 No provider procedures requiring assistance completed. Patient did not have IV access jb4 during this emergency room visit. Administered Medications: 22:15 Not Given (Other Intervention Used): Clindamycin 600 mg IM once jb4 22:17 Drug: Clindamycin 600 mg Route: PO; jb4 22:31 Follow up: Response: No adverse reaction; Marked relief of symptoms jb4 22:21 Drug: morphine 4 mg Route: IM; Site: left deltoid; jb4 22:31 Follow up: Response: No adverse reaction; Marked relief of symptoms jb4 Medication: 22:39 VIS not applicable for this client. jb4 Outcome: 22:23 Discharge ordered by MD. cp 22:40 Discharged to home ambulatory, with family. jb4 22:40 Condition: stable 22:40 Discharge instructions given to patient, Instructed on discharge instructions, follow up and referral plans. medication usage, Demonstrated understanding of instructions, follow-up care, medications, Prescriptions given X 2. 22:40 Patient left the ED. jb4 Signatures: Torin Waller PA PA cp Cyo Arana, RN RN jb4 Tegan Adkins RN RN ld1 Silvia Duncan jj6 Corrections: (The following items were deleted from the chart) 20:41 20:36 BP 157 / 104; Pulse 78bpm; Resp 18bpm; Pulse Ox 98% RA; Temp 98.1F Oral; 77.11 ld1 kg; Height 5 ft. 6 in.; BMI: 27.4; Pain 9/10; ld1
--- NOTE | 2021-11-30 22:24 | EDPHYS ---
Physician Documentation [facility] Name: Brandon Zhang Age: 51 yrs Sex: Male : 1970 Arrival Date: 11/30/2021 Time: 20:24 Bed 14 Private MD: ED Physician Torin Delgado HPI: 11/30 21:40 This 51 yrs old Male presents to ER via Ambulatory with complaints of Mouth cp Problem, Jaw Pain. 21:40 The patient presents with pain. The problem is located in the left lower back molar. cp Onset: The symptoms/episode began/occurred yesterday. Duration: The symptoms are continuous, and are steadily getting worse. 21:40 Associated signs and symptoms: Pertinent positives: swelling, mandibular, Pertinent cp negatives: fever. Patient reports he went to office of dentist who he has seen in the past concerning pain with this same tooth. Patient was unable to see dentist, but was given prescriptions for Ibuprofen and Amoxicillin. Patient reports right lower jaw swelling. Historical: - Allergies: 20:39 No Known Allergies; ld1 - PMHx: 20:39 Hypertension; ld1 - PSHx: 20:39 None; ld1 - Immunization history:: Adult Immunizations up to date, Client reports receiving the 2nd dose of the Covid vaccine. - Social history:: Smoking status: Patient denies any tobacco usage or history of. Patient uses alcohol, occasionally. ROS: 21:45 Constitutional: Negative for body aches, chills, fever, poor PO intake. cp 21:45 Eyes: Negative for injury, pain, redness, and discharge. cp 21:45 ENT: Positive for dental pain. 21:45 Cardiovascular: Negative for chest pain, palpitations. 21:45 Respiratory: Negative for cough, shortness of breath, wheezing. 21:45 Abdomen/GI: Negative for abdominal pain, nausea, vomiting, and diarrhea. 21:45 Neuro: Negative for altered mental status, headache, weakness. 21:45 All other systems are negative. Exam: 21:50 Constitutional: The patient appears in no acute distress, alert, awake, non-toxic, well cp developed, well nourished. 21:50 Head/face: Noted is swelling, that is mild, of the left lower jaw, tenderness, that is cp moderate, of the left lower jaw. 21:50 Eyes: Periorbital structures: appear normal, Conjunctiva: normal, no exudate, no injection, Sclera: no appreciated abnormality, Lids and lashes: appear normal, bilaterally. 21:50 ENT: External ear(s): are unremarkable, Ear canal(s): are normal, clear, TM's: dullness, bilaterally, Nose: is normal, Mouth: Lips: moist, Oral mucosa: pink and intact, moist, Gums: pink, Tongue: is normal, abscess, is not appreciated, Posterior pharynx: Airway: no evidence of obstruction, patent, Dental exam: abscess, is not appreciated, dental caries, that is moderate, diffusely, missing teeth, diffusely, pain, that is moderate, specifically in the lower left third molar (#17), Voice: is normal. 21:50 Neck: ROM/movement: is normal, is supple, without pain, no range of motions limitations, no nuchal rigidity, Lymph nodes: no appreciated lymphadenopathy. 21:50 Chest/axilla: Inspection: normal. 21:50 Cardiovascular: Rate: normal. 21:50 Respiratory: the patient does not display signs of respiratory distress, Respirations: normal, no use of accessory muscles, no retractions, labored breathing, is not present. 21:50 Skin: no rash present. 21:50 Neuro: Orientation: to person, place \T\ time. Mentation: is normal. Vital Signs: 20:36 BP 145 / 106; Pulse 78; Resp 18; Temp 98.1(O); Pulse Ox 98% on R/A; Weight 77.11 kg; ld1 Height 5 ft. 6 in. (167.64 cm); Pain 9/10; 20:36 Body Mass Index 27.44 (77.11 kg, 167.64 cm) ld1 MDM: 21:21 Patient medically screened. adebayo 22:23 Data reviewed: vital signs, nurses notes. cp 22:23 Differential diagnosis: dental caries, dental abscess, pericoronitis, cp gingivostomatitis. Counseling: I had a detailed discussion with the patient and/or guardian regarding: the historical points, exam findings, and any diagnostic results supporting the discharge/admit diagnosis, the need for outpatient follow up, for definitive care, a dentist, to return to the emergency department if symptoms worsen or persist or if there are any questions or concerns that arise at home. Response to treatment: the patient's symptoms have markedly improved after treatment, and as a result, I will discharge patient. Administered Medications: 22:15 Not Given (Other Intervention Used): Clindamycin 600 mg IM once jb4 22:17 Drug: Clindamycin 600 mg Route: PO; jb4 22:31 Follow up: Response: No adverse reaction; Marked relief of symptoms jb4 22:21 Drug: morphine 4 mg Route: IM; Site: left deltoid; jb4 22:31 Follow up: Response: No adverse reaction; Marked relief of symptoms jb4 Disposition Summary: 11/30/21 22:23 Discharge Ordered Location: Home cp Problem: new cp Symptoms: have improved cp Condition: Stable cp Diagnosis - Disorder of teeth and supporting structures, unspecified cp Followup: cp - With: Private Physician - When: 1 - 2 days - Reason: Recheck today's complaints Discharge Instructions: - Discharge Summary Sheet cp - Dental Pain cp Forms: - Medication Reconciliation Form cp - Thank You Letter cp - Antibiotic Education cp - Prescription Opioid Use cp - Work release form jb4 Prescriptions: - Clindamycin HCl 300 mg Oral Capsule - take 1 capsule by ORAL route every 6 hours for 10 days; 40 capsule; Refills: 0, cp Product Selection Permitted - Tramadol 50 mg Oral Tablet - take 1 tablet by ORAL route every 8 hours as needed; 12 tablet; Refills: 0, cp Product Selection Permitted Signatures: Torin Delgado MD MD cha Page, Corey, PA PA cp Coy Arana, RN RN jb4 Tegan Adkins RN RN ld1
[2021-12-01 02:11] VITALS: BP 145/106; TEMP 98.1; O2SAT 98
== END 2021-11-30 22:40 | disposition home or self-care (01) ==
LOC: ER 20:22
DX: K08.89 Other specified disorders of teeth and supporting structures (principal); I10 Essential (primary) hypertension
CPT/HCPCS: 96372; 99283

== ENCOUNTER 2022-04-03 20:58 | Emergency (ER) | payer SELFPAY ==
--- OUTSIDE RECORDS SUMMARY | 2022-04-03 21:04 | XMS REPORT | Continuity of Care Document ---
:1970 Author Organization [facility] t Address [address] [place] [address] Dr. She[address] [place] [id number] Care Team Providers Name Role Phone Unavailable [...] Clinicians Facility Department ID 2019-11-13 2019-11-13 Outpatient [facility] 00:00:00 00:00:00 [id number] 3 Results This patient has no known results.
--- NOTE | 2022-04-03 22:26 | RAD REPORT ---
EXAM DESCRIPTION: CT - Head Brain Wo Cont - 04/03/2022 10:14 pm CLINICAL HISTORY: Headache, new or worsening Headache, drowsiness COMPARISON: No comparisons TECHNIQUE: All CT scans are performed using dose optimization technique as appropriate and may inclu de automated exposure control or mA/KV adjustment according to patient size. FINDINGS: No intracranial hemorrhage, hydrocephalus or extra-axial fluid collection.No areas of brai n edema or evidence of midline shift. The paranasal sinuses and mastoids are clear. The calvarium is intact. IMPRESSION: No acute intracranial abnormality.
--- NOTE | 2022-04-03 22:41 | EDPHYS ---
Physician Documentation [facility] Name: Brandon Zhang Age: 52 yrs Sex: Male : 1970 Arrival Date: 04/03/2022 Time: 20:59 Bed 20 Private MD: ED Physician Gerhard Olson HPI: 04/03 22:44 This 52 yrs old Male presents to ER via Ambulatory with complaints of High rt Blood Pressure, Redness of Eye, Headache, Blurred Vision. 22:44 Presents to the ED with a headache starting about 2 days ago. He states this occurred rt when he lie down. Patient states that he sneezed at that time. He states that he felt a pressure in his head. This is subsequently resolved. He states that he has had intermittent blurred vision to his left eye as well. The patient states that he developed a redness involving the left eye. He states that he does not have a headache currently and his vision seems to be back to normal. Denies other acute complaints. He states that he was hypertensive, reported that he went to a clinic where his blood pressure was about 140. Denies chest pain, shortness of breath. Denies other acute complaints at this time. Symptoms are mild in severity, no other aggravating alleviating factors.. Historical: - Allergies: 21:44 No Known Allergies; kb3 - Home Meds: 21:44 lisinopril-hydrochlorothiazide 20-25 mg oral tab 1 tab once daily [Active]; kb3 - PMHx: 21:44 Hypertension; kb3 - PSHx: 21:44 None; kb3 - Immunization history:: Adult Immunizations up to date, Client reports receiving the 2nd dose of the Covid vaccine, Last tetanus immunization: unknown. - Social history:: Smoking status: Patient denies any tobacco usage or history of. - Family history:: not pertinent. ROS: 22:44 Constitutional: Negative for fever, chills, and weight loss, ENT: Negative for injury, rt pain, and discharge, Neck: Negative for injury, pain, and swelling, Cardiovascular: Negative for chest pain, palpitations, and edema, Respiratory: Negative for shortness of breath, cough, wheezing, and pleuritic chest pain, Abdomen/GI: Negative for abdominal pain, nausea, vomiting, diarrhea, and constipation, Skin: Negative for injury, rash, and discoloration, Psych: Negative for depression, anxiety, suicide ideation, homicidal ideation, and hallucinations. 22:44 Eyes: Positive for blurry vision, redness. 22:44 Neuro: Positive for headache, Negative for altered mental status. Exam: 22:44 Constitutional: This is a well developed, well nourished patient who is awake, alert, rt and in no acute distress. Head/Face: Normocephalic, atraumatic. ENT: Nares patent. No nasal discharge, no septal abnormalities noted. Tympanic membranes are normal and external auditory canals are clear. Oropharynx with no redness, swelling, or masses, exudates, or evidence of obstruction, uvula midline. Mucous membranes moist. Chest/axilla: Normal chest wall appearance and motion. Nontender with no deformity. No lesions are appreciated. Cardiovascular: Regular rate and rhythm with a normal S1 and S2. No gallops, murmurs, or rubs. Normal PMI, no JVD. No pulse deficits. Respiratory: Lungs have equal breath sounds bilaterally, clear to auscultation and percussion. No rales, rhonchi or wheezes noted. No increased work of breathing, no retractions or nasal flaring. Abdomen/GI: Soft, non-tender, with normal bowel sounds. No distension or tympany. No guarding or rebound. No evidence of tenderness throughout. Skin: Warm, dry with normal turgor. Normal color with no rashes, no lesions, and no evidence of cellulitis. MS/ Extremity: Pulses equal, no cyanosis. Neurovascular intact. Full, normal range of motion. Neuro: Awake and alert, GCS 15, oriented to person, place, time, and situation. Cranial nerves II-XII grossly intact. Motor strength 5/5 in all extremities. Sensory grossly intact. Cerebellar exam normal. Normal gait. Psych: Awake, alert, with orientation to person, place and time. Behavior, mood, and affect are within normal limits. 22:44 Eyes: Was equally round and reactive to light, extraocular muscles are intact. There is a subconjunctival hemorrhage present to the left eye. No hyphema.. Vital Signs: 21:21 BP 146 / 99; Pulse 81; Resp 18 S; Pulse Ox 99% on R/A; ha1 22:20 BP 136 / 83; Pulse 76; Resp 16 S; Pulse Ox 99% on R/A; ha1 23:07 BP 136 / 80; Pulse 80; Resp 17 S; Pulse Ox 99% on R/A; ha1 MDM: 21:21 Patient medically screened. rt 22:44 Differential diagnosis: CVA, TIA, tumor, hemorrhage, trauma. Data reviewed: vital rt signs, nurses notes, radiologic studies, CT scan. ED course: Presents to the ED with a headache. The patient has no focal neurologic deficits nor did he describe any lateralizing symptoms though concerning for a CVA. Do not believe that he requires work-up for CVA. Patient is found have a subconjunctival hemorrhage to the left eye, no hyphema noted. 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 The patient has no evidence of an open globe, endophthalmitis. I discussed with the patient conservative care. Patient's headache is since resolved. There is no evidence of hemorrhage, tumor on the CT scan. Suspect benign headache etiology. Patient was instructed to establish care with and follow-up with a primary care provider. He was complaining of hypertension, ever, his blood pressures were never in severe range, no evidence for endorgan dysfunction, do not believe that he requires further evaluation or treatment for this at this time.. 04/03 21:34 Order name: CT Head Brain wo Cont; Complete Time: 22:31 rt Administered Medications: No medications were administered Disposition Summary: 04/03/22 22:40 Discharge Ordered Location: Home rt Problem: new rt Symptoms: have improved rt Condition: Stable rt Diagnosis - Headache rt - Subconjunctival hemorrhage of left eye rt Followup: rt - With: Private Physician - When: 2 - 3 days - Reason: Discharge Instructions: - Discharge Summary Sheet rt - General Headache Without Cause rt - Subconjunctival Hemorrhage rt Forms: - Medication Reconciliation Form rt - Thank You Letter rt - Work release form rt - Antibiotic Education rt - Prescription Opioid Use rt Signatures: Dispatcher [employer] Ashley Huston, RN RN kb3 Gerhard Olson MD MD rt
--- NOTE | 2022-04-03 22:41 | ER ---
Nurse's Notes [facility] Name: Brandon Zhang Age: 52 yrs Sex: Male : 1970 Arrival Date: 04/03/2022 Time: 20:59 Bed 20 Private MD: Diagnosis: Headache;Subconjunctival hemorrhage of left eye Presentation: 04/03 21:05 Chief complaint: Patient states: right-sided headache that began on Monday, woke up kb3 with a left eye scleral hemorrhage on Monday morning, was seen at Urgent Care and instructed to come to ER for evaluation. PT reports [place] has improved but there is a strong history of strokes in his immediate family. 21:05 Coronavirus screen: Vaccine status: Patient reports receiving the 2nd dose of the covid kb3 vaccine. Client denies travel out of the [place] in the last 14 days. Ebola Screen: Patient negative for fever greater than or equal to 101.5 degrees Fahrenheit, and additional compatible Ebola Virus Disease symptoms Patient denies exposure to infectious person. Patient denies travel to an Ebola-affected area in the 21 days before illness onset. No symptoms or risks identified at this time. Initial Sepsis Screen: Does the patient meet any 2 criteria? No. Patient's initial sepsis screen is negative. Does the patient have a suspected source of infection? No. Patient's initial sepsis screen is negative. Risk Assessment: Do you want to hurt yourself or someone else? Patient reports no desire to harm self or others. Onset of symptoms was April 01, 2022. 21:05 Method Of Arrival: Ambulatory 3 21:05 Acuity: MAYURI 3 kb3 Triage Assessment: 21:05 Headache History: Denies prior headaches. kb3 21:05 General: Appears in no apparent distress. Behavior is calm, cooperative. Pain: kb3 Complains of pain in right frontal area, right side of the back of head and right temporal area Pain does not radiate. Pain currently is 3 out of 10 on a pain scale. Quality of pain is described as aching, dull, Pain began 2-3 days ago. Also complains of no other associated symptoms. Neuro: No deficits noted. 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 Gait is steady, Speech is normal, Facial symmetry appears normal, Pupils are PERRLA, Intact Reports headache in right parietal area, occipital area. Historical: - Allergies: 21:44 No Known Allergies; kb3 - Home Meds: 21:44 lisinopril-hydrochlorothiazide 20-25 mg oral tab 1 tab once daily [Active]; kb3 - PMHx: 21:44 Hypertension; kb3 - PSHx: 21:44 None; kb3 - Immunization history:: Adult Immunizations up to date, Client reports receiving the 2nd dose of the Covid vaccine, Last tetanus immunization: unknown. - Social history:: Smoking status: Patient denies any tobacco usage or history of. - Family history:: not pertinent. Screenin:22 Abuse screen: Denies threats or abuse. Denies injuries from another. Nutritional ha1 screening: No deficits noted. Tuberculosis screening: No symptoms or risk factors identified. 21:22 [facility] ED Fall Risk Assessment (Adult) History of falling in the last 3 months, ha1 including since admission No falls in past 3 months (0 pts) Confusion or Disorientation No (0 pts) Intoxicated or Sedated No (0 pts) Impaired Gait No (0 pts) Mobility Assist Device Used No (0 pt) Altered Elimination No (0 pt) Score/Fall Risk Level 0 - 2 = Low Risk Oriented to surroundings, Maintained a safe environment, Educated pt \T\ family on fall prevention, incl call for assistance when getting out of bed, Hourly rounding (assess needs \T\ fall precautionary measures) done. Assessment: 21:19 General: Appears comfortable, Behavior is calm, cooperative. Pain: Complains of pain in ha1 head Pain does not radiate. Pain currently is 3 out of 10 on a pain scale. Quality of pain is described as pressure. Neuro: Level of Consciousness is awake, alert, obeys commands, Oriented to person, place, time, situation, Reports headache in left parietal area. Cardiovascular: Patient's skin is warm and dry. Respiratory: Airway is patent Respiratory effort is even, unlabored, Respiratory pattern is regular, symmetrical. GI: No signs and/or symptoms were reported involving the gastrointestinal system. Abdomen is flat, non-distended, Bowel sounds present X 4 quads. : No signs and/or symptoms were reported regarding the genitourinary system. EENT: No deficits noted. No signs and/or symptoms were reported regarding the EENT system. Derm: Skin is pink, warm \T\ dry. Musculoskeletal: Circulation, motion, and sensation intact. Range of motion: intact in all extremities. 22:20 Reassessment: Patient and/or family updated on plan of care and expected duration. Pain ha1 level reassessed. Patient is alert, oriented x 3, equal unlabored respirations, skin warm/dry/pink. back from CT. awaiting on results. 23:07 Reassessment: Patient and/or family updated on plan of care and expected duration. Pain ha1 level reassessed. Patient is alert, oriented x 3, equal unlabored respirations, skin warm/dry/pink. Patient denies pain at this time. Vital Signs: 21:21 BP 146 / 99; Pulse 81; Resp 18 S; Pulse Ox 99% on R/A; ha1 22:20 BP 136 / 83; Pulse 76; Resp 16 S; Pulse Ox 99% on R/A; ha1 23:07 BP 136 / 80; Pulse 80; Resp 17 S; Pulse Ox 99% on R/A; ha1 ED Course: 20:59 Patient arrived in ED. as 21:04 Ct Ley, RN is Primary Nurse. ha1 21:05 Arm band placed on right wrist. Patient placed in an exam room, on a stretcher. kb3 21:05 Patient has correct armband on for positive identification. Placed in gown. Bed in low ha1 position. Call light in reach. Side rails up X 1. Adult w/ patient. 21:14 Gerhard Olson MD is Attending Physician. rt 21:44 Triage completed. kb3 22:14 CT Head Brain wo Cont In Process Unspecified. EDMS 23:07 No provider procedures requiring assistance completed. ha1 23:07 Patient did not have IV access during this emergency room visit. ha1 Administered Medications: No medications were administered Medication: 23:07 VIS not applicable for this client. ha1 Outcome: 22:40 Discharge ordered by . rt 23:07 Patient left the ED. ha1 23:07 Condition: stable ha1 23:07 Discharged to home ambulatory, with family. ha1 23:07 Discharge instructions given to patient, family, Instructed on discharge instructions, follow up and referral plans. Demonstrated understanding of instructions, follow-up care. Signatures: Dispatcher [employer] Lexus Barclay Heidy, RN RN ha1 Ashley Leslie RN RN kb3 Gerhard Olson MD MD rt
[2022-04-03 23:11] VITALS: O2SAT 99
[2022-04-03 23:12] VITALS: BP 136/83
== END 2022-04-03 23:07 | disposition home or self-care (01) ==
LOC: ER 20:58
DX: R51.9 Headache, unspecified (principal); H11.32 Conjunctival hemorrhage, left eye
CPT/HCPCS: 70450; 99283